=== PATIENT | female | born 1955 | race American Indian/Alaskan Native ===

== ENCOUNTER 2017-10-17 14:48 | Outpatient (CLI) | payer MEDICAID ==
--- NOTE | 2017-10-17 16:38 | XRay Report ---
XRAY LEFT HIP THREE VIEWS: 10/17/17 14:48:00 CLINICAL: Left hip pain. FINDINGS: Severe osteoarthritis of the left hip with complete loss of the joint space. A large superior osteophyte enlarged superior acetabular geodes. Mild to moderate osteoarthritis of the right hip. Old healed bilateral inferior pubic rami fractures. IMPRESSION: 1. Severe left hip osteoarthritis. 2. No acute fracture or dislocation. 3. Old bilateral healed inferior pubic rami fractures.
== END 2017-10-17 14:49 | disposition home or self-care (01) ==
LOC: XRAY 14:48
PROVIDERS: ATTEND Orthopaedic Surgery
DX: M16.12 Unilateral primary osteoarthritis, left hip (principal); M25.752 Osteophyte, left hip; M79.652 Pain in left thigh; I10 Essential (primary) hypertension; J45.909 Unspecified asthma, uncomplicated; F41.9 Anxiety disorder, unspecified; Z85.038 Personal history of other malignant neoplasm of large intestine; Z86.010 Personal history of colon polyps; Z90.49 Acquired absence of other specified parts of digestive tract

== ENCOUNTER 2017-11-10 10:00 | Inpatient (IN) | payer MEDICAID ==
[2017-11-10 11:05] LABS: Basophils % (Auto) 0.8 % (0.0-1.8); Eosinophils # (Auto) 0.1 K/mm3 (0.0-0.4); Eosinophils % (Auto) 2.5 % (0.0-4.3); Hematocrit 36.9 % (30.3-42.9); Hemoglobin 13.2 gm/dl (10.1-14.3); Lymphocytes # (Auto) 1.3 K/mm3 (1.2-5.4); Lymphocytes % (Auto) 27.5 % (13.4-35.0); Mean Corpuscular HGB Conc 36 % (30-34); Mean Corpuscular Hemoglobin 32 pg (28-32); Mean Corpuscular Volume 88 fl (79-97); Monocytes # (Auto) 0.4 K/mm3 (0.0-0.8); Monocytes % (Auto) 7.9 % (0.0-7.3); Platelet Count 249 K/mm3 (140-440); Red Blood Count 4.19 M/mm3 (3.65-5.03); Red Cell Distribution Width 13.5 % (13.2-15.2)
--- NOTE | 2017-11-10 11:06 | Anesthesia Consultation ---
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
[2017-11-10 11:27] LABS: Alanine Aminotransferase 6 units/L (7-56); Albumin 3.9 g/dL (3.9-5); BUN/Creatinine Ratio 19; Blood Urea Nitrogen 13 mg/dL (7-17); Calcium 9.8 mg/dL (8.4-10.2); Hemolysis Index 14
[2017-11-16] MEDS ORDERED: TRANEXAMIC ACID ONE (06:46)
[2017-11-16] MEDS ORDERED: MARCAINE 0.5% 30 ML INFILTRATI ONE (06:46)
[2017-11-16] MEDS ORDERED: TORADOL ONE (06:46)
[2017-11-16] MEDS ORDERED: NACL 0.9% 250ML 250 ML ONE (06:47)
[2017-11-16] MEDS ORDERED: MORPHINE ONE (06:47)
[2017-11-16] MEDS ORDERED: XYLOCAINE MPF 2% ONE (07:13)
[2017-11-16] MEDS ORDERED: DIPRIVAN 10 MG/ML IV ONE ×2 (07:13→09:04)
--- NOTE | 2017-11-16 07:25 | Anesthesia Day of Surgery ---
Anesthesia Day of Surgery - Day of Surgery Patient Examined: Yes Patient H&P Reviewed: Yes Patient is NPO: Yes
[2017-11-16] MEDS ORDERED: ZOFRAN IV PRN (07:30)
--- NOTE | 2017-11-16 07:43 | Anesthesia Day of Surgery ---
Anesthesia Day of Surgery - Day of Surgery Patient Examined: Yes Patient H&P Reviewed: Yes Patient is NPO: Yes
[2017-11-16] MEDS ORDERED: LACTATED RINGERS 1,000 ML ONE (07:58)
[2017-11-16] MEDS ORDERED: VERSED IV NR (08:00)
[2017-11-16] MEDS ORDERED: ceFAZolin 2 GM in NACL 0.9% 100 ML IV ONE (08:08)
[2017-11-16] MEDS: LACTATED RINGERS 1,000 ML IV SCH ×2 (08:14→17:20)
[2017-11-16 08:16] LABS: Partial Thromboplastin Time 27.5 Sec. (24.2-36.6)
[2017-11-16] MEDS ORDERED: ZEMURON IV ONE (08:18)
[2017-11-16] MEDS ORDERED: ANCEF/STERILE WATER 2 GM/20 ML 2 GM/20 ML SYRINGE IV NR (08:30)
[2017-11-16] MEDS ORDERED: DILAUDID ONE (08:47)
[2017-11-16] MEDS ORDERED: ZOFRAN ONE (09:36)
[2017-11-16] MEDS ORDERED: DECADRON ONE (09:36)
[2017-11-16] MEDS ORDERED: TRANEXAMIC ACID IV ONE (09:41)
[2017-11-16] MEDS ORDERED: NACL 0.9% 1000 ML 1,000 ML ONE (10:35)
[2017-11-16] MEDS ORDERED: NACL 0.9% IV ONE ×2 (10:45)
[2017-11-16] MEDS ORDERED: MARCAINE 0.5% INFILTRATI ONE ×2 (10:45)
[2017-11-16] MEDS ORDERED: MORPHINE IM ONE ×2 (10:45)
[2017-11-16] MEDS ORDERED: MILK OF MAGNESIA PO PRN (11:26)
[2017-11-16] MEDS ORDERED: AMBIEN PO PRN (11:26)
[2017-11-16] MEDS ORDERED: DULCOLAX PR PRN (11:26)
--- NOTE | 2017-11-16 11:39 | Procedure Note ---
Date of procedure: 11/16/17 Pre-op diagnosis: severe arthritis left hip Post-op diagnosis: same Procedure: Left total hip replacement Procedure The patient was brought to the OR placed in the OR table supine position following induction and intubation by anesthesia the patient was turned into the right lateral decubitus position care was taken to protect bony areas and a axillary roll was placed in the right axilla. Routine prep and drape was done to the left hip and thigh a timeout procedure was done to identify the patient and the correct operative site. Next a lateral incision was made centered over the greater trochanteric trochanter this is taken approximately as well as distally along the proximal thigh incision was then carried down deep through the skin and subcutaneous tissue next the fascial enriqueta was seen and identified a longitudinal incision was made following this a large Charnley retractor was placed in the wound was brought TO THE VASTUS LATERALIS AND GLUTEUS MEDIUS MUSCLES USING A BOVIE THE INCISION WAS CARRIED ALONG THE ANTERIOR CAPSULE NEXT THE HIP WAS FLEXED AND INTERNALLY ROTATED AND A CAPSULOTOMY WAS PERFORMED. The hip was then dislocated and using a small broach as a template a osteotomy was performed on the femoral neck following this a bone corkscrew was used to retrieve the femoral head which appeared arthritic with bone spurs and loss of articular cartilage following this the retractors were placed around the rim of the acetabulum care was taken to remove soft tissue and labrum the femoral head measured 44 mm in diameter A reaming was started started with the a 42 mm reamer and progressed up which to a 52 mm cup following this the wound was irrigated a 52 mm acetabular to hold shell was applied in the correct version to bone screws were used to maintain reduction next day 0 polyethylene liner was inserted next attention was turned to the proximal femur using a [employer] cutter and the proximal canal was entered this was followed by reaming and broaching to a plus #5 stem followed by placement of a 0 length neck and a 36 mm head the hip was then reduced and taken through range of motion and was found to be stable following this the trial components were removed the wound was again irrigated as well as the medullary canal this was followed by insertion of the final component and a #5 stem and a 36 mm head with the 0 offset again the hip was reduced taken through a range of motion and was found to be stable following this the postop pain could conduction mixture was injected into the soft tissues for postoperative pain management next the deep tissues and fascia was closed with #1 Vicryl sutures followed by closure of the subcutaneous tissues with 0 2-0 Vicryl a zip line suture apparatus was applied to the skin as well as routine postop dressings the patient was extubated and was taken to postanesthesia recovery in stable condition Anesthesia: KELSEY Surgeon: JEFFREY BARRETT Parts Assembler: CHICO WU Estimated blood loss: other (300 mL) Pathology: list (left femoral head) Specimen disposition: to lab Condition: stable Disposition: PACU
[2017-11-16] MEDS ORDERED: SODIUM CHLORIDE FLUSH SYRINGE 10 ML IV NR (12:00)
[2017-11-16] MEDS: DILAUDID IV PRN ×3 (12:05→22:59)
[2017-11-16] MEDS: MORPHINE IV PRN (14:20)
--- NOTE | 2017-11-16 14:35 | Post Anesthesia Evaluation ---
- Post Anesthesia Evaluation Patient Participated: Yes Airway Patent: Yes Stable Respiratory Function: Yes Nausea/Vomiting: No Temp > 96.8F: Yes Pain Manageable: Yes Adequeate Hydration: Yes Anesthesia Complications: No
[2017-11-16] MEDS: ANCEF/NS 1 GM/50 ML 1 GM/50 ML BAG IV SCH ×2 (17:20→23:43)
[2017-11-17] MEDS: DILAUDID IV PRN ×3 (03:48→10:33)
[2017-11-17] MEDS: LACTATED RINGERS 1,000 ML IV SCH ×2 (05:17→18:03)
--- NOTE | 2017-11-17 06:00 | Consultation ---
History of Present Illness - Reason for Consult Consult date: 11/16/17 [facility] H[facility] and Asthma Requesting physician: JEFFREY BARRETT - History of Present Illness [place]: S/p Elective L Hip replacement for severe degenerative arthritis of Hip joint.Post op doing well.Medical management for HTN HLD and Asthma Past History Past Medical History: hypertension, hyperlipidemia, other (Asthma) Past Surgical History: total hip replacement (Left) Social history: lives with family, full code Family history: hypertension Medications and Allergies Allergies Allergy/AdvReac Type Severity Reaction Status Date / Time iodine Allergy Severe Rash Verified 04/18/14 06:57 ibuprofen [From Motrin] AdvReac Severe Nausea, Verified 04/18/14 06:58 vomiting Home Medications Medication Instructions Recorded Confirmed Last Taken Type NIFEdipine XL [Procardia Xl] 90 mg PO QDAY 03/03/13 11/16/17 11/16/17 History 0430 Pnv95/Ferrous Fumarate/FA 1 each PO QDAY 03/03/13 11/16/17 11/15/17 09:00 History [ Formula Tablet] ALBUTEROL NEB's [Proventil 0.083% 2.5 mg IH PRN PRN 11/07/17 11/16/17 6 Months Ago History NEBS] ~05/19/17 Aspirin [Aspirin EC] 325 mg PO DAILY 11/07/17 11/16/17 11/09/17 09:00 History Atorvastatin Calcium [Lipitor] 20 mg PO DAILY 11/07/17 11/16/17 11/14/17 21:00 History Losartan Potassium [Cozaar] 50 mg PO DAILY 11/07/17 11/16/17 11/16/17 History 0430 Meloxicam [Mobic] 7.5 mg PO BID 11/16/17 11/16/17 11/16/17 History 0430 Active Meds: Active Medications Bisacodyl (Dulcolax) 10 mg [place] QDAY PRN PRN Reason: Constip unreliev by MOM/or NPO Enoxaparin Sodium (Lovenox) 40 mg SUB-Q QDAY MALCOM Hydromorphone HCl (Dilaudid) 1 mg IV Q3H PRN PRN Reason: Pain , Severe (7-10) Last Admin: 11/17/17 03:48 Dose: 1 mg Lactated Ringer's (Lactated Ringers) 1,000 mls @ 100 mls/hr IV DIRECT MALCOM Last Admin: 11/17/17 05:17 Dose: 100 mls/hr Magnesium Hydroxide (Milk Of Magnesia) 30 ml PO Q4H PRN PRN Reason: Constipation Morphine Sulfate (Morphine) 2 mg IV Q4H PRN PRN Reason: Pain, Moderate (4-6) Last Admin: 11/16/17 14:20 Dose: 2 mg Zolpidem Tartrate (Ambien) 5 mg PO QHS PRN PRN Reason: Sleep Review of Systems All systems: negative Exam - Constitutional Vitals: Temp Pulse Resp BP Pulse Ox 99.2 F 75 20 99/59 99 11/17/17 03:59 11/17/17 03:59 11/17/17 03:59 11/17/17 03:59 11/17/17 03:59 General appearance: Present: no acute distress, well-nourished - EENT Eyes: Present: PERRL ENT: hearing intact, clear oral mucosa - Neck Neck: Present: supple, normal ROM - Respiratory Respiratory effort: normal Respiratory: bilateral: CTA - Cardiovascular Heart rate: 76 Rhythm: regular Heart Sounds: Present: S1 & S2. Absent: rub, click - Extremities Extremities: no ischemia, pulses intact, pulses symmetrical, No edema Peripheral Pulses: within normal limits - Abdominal General gastrointestinal: Present: soft, non-tender, non-distended, normal bowel sounds Female genitourinary: Present: normal - Rectal Rectal Exam: deferred - Integumentary Integumentary: Present: clear, warm, dry - Musculoskeletal Musculoskeletal: gait normal, strength equal bilaterally - Psychiatric Psychiatric: appropriate mood/affect, intact judgment & insight - Neurologic Neurologic: CNII-XII intact, moves all extremities - Allied Health Allied health notes reviewed: case management Results - Labs CBC & Chem 7: 11/10/17 10:30 11/10/17 10:30 Assessment and Plan - Patient Problems (1) HTN (hypertension), benign Current Visit: Yes Status: Chronic Plan to address problem: Cont Losartan and Nifedipine (2) HLD (hyperlipidemia) Current Visit: Yes Status: Chronic Qualifiers: Hyperlipidemia type: mixed hyperlipidemia Qualified Code(s): E78.2 - Mixed hyperlipidemia Plan to address problem: Cont statins (3) Asthma Current Visit: Yes Status: Inactive Qualifiers: Asthma persistence: unspecified Plan to address problem: MDI's prn. Not wheezing (4) S/P hip replacement Current Visit: Yes Status: Acute Qualifiers: Laterality: left Qualified Code(s): Z96.642 - Presence of left artificial hip joint Plan to address problem: Post op doing well (5) DVT prophylaxis Current Visit: Yes Status: Acute Plan to address problem: On Lovenox
[2017-11-17 06:12] LABS: Hematocrit 31.4 % (30.3-42.9); Hemoglobin 10.4 gm/dl (10.1-14.3)
[2017-11-17 06:34] LABS: Calcium 8.7 mg/dL (8.4-10.2)
--- NOTE | 2017-11-17 07:39 | XRay Report ---
LEFT HIP, ONE VIEW History: Postoperative evaluation. Findings: Left hip replacement has been performed since 10/17/17. The hardware appears well applied. No fracture or malalignment is appreciated. Impression: Stable appearance of the left hip arthroplasty.
[2017-11-17] MEDS: LOVENOX SUB-Q SCH (10:36)
[2017-11-17] MEDS: PERCOCET 5/325 PO PRN ×3 (13:29→23:27)
--- NOTE | 2017-11-17 15:03 | Progress Note ---
Assessment and Plan s/p left THR doing well continue PT and observation Subjective Date of service: 11/17/17 Interval history: no c/o's noted except for incisional soreness Objective Vital signs: Vital Signs - 12hr 11/17/17 11/17/17 11/17/17 03:59 07:15 08:57 Temperature 99.2 F 99.0 F Pulse Rate 75 72 Respiratory 20 20 Rate Blood Pressure 99/59 Blood Pressure 102/50 [Left] O2 Sat by Pulse 99 98 98 Oximetry 11/17/17 11:25 Temperature 99.0 F Pulse Rate 73 Respiratory 20 Rate Blood Pressure Blood Pressure 102/56 [Left] O2 Sat by Pulse 100 Oximetry - Labs CBC & BMP: 11/17/17 06:00 11/17/17 06:00 Labs: Abnormal lab results 11/17/17 Range/Units 06:00 BUN 18 H (7-17) mg/dL Glucose 120 H (65-100) mg/dL
[2017-11-17] MEDS ORDERED: PROVENTIL IH PRN (17:38)
--- NOTE | 2017-11-17 17:40 | Progress Note ---
Assessment and Plan Assessment and plan: 5-year-old female past medical history of hypertension, hyperlipidemia asthma osteoarthritis presented for Elective L Hip replacement for severe degenerative arthritis of Hip joint is affecting patient's quality of life.Post op doing well.Medical management for HTN HLD and Asthma (1) HTN (hypertension), benign Current Visit: Yes Status: Chronic Plan to address problem: Cont Losartan and Nifedipine (2) HLD (hyperlipidemia) Current Visit: Yes Status: Chronic Qualifiers: Hyperlipidemia type: mixed hyperlipidemia Qualified Code(s): E78.2 - Mixed hyperlipidemia Plan to address problem: Cont statins (3) Asthma Current Visit: Yes Status: Inactive Qualifiers: Asthma persistence: unspecified Plan to address problem: MDI's prn. No acute distress noted (4) S/P hip replacement Current Visit: Yes Status: Acute Qualifiers: Laterality: left Qualified Code(s): Z96.642 - Presence of left artificial hip joint Plan to address problem: Post op doing well Continue physical therapy. Otherwise other management per orthopedic surgeon (5) DVT prophylaxis Current Visit: Yes Status: Acute Plan to address problem: On Lovenox History Interval history: Patient seen and examined this morning doing well in no acute distress resting comfortably. She still reports some pain in the surgical site. She has seen physical therapy by just getting her up to see by the bedside. Hospitalist Physical - Physical exam Narrative exam: VITAL SIGNS: Reviewed. GENERAL: The patient appeared well nourished and normally developed, morbidly obese. Vital signs as documented. HEAD: No signs of head trauma. EYES: Pupils are equal. Extraocular motions intact. EARS: Hearing grossly intact. MOUTH: Oropharynx is normal. NECK: No adenopathy, no JVD. CHEST: Chest with clear breath sounds bilaterally. No wheezes, rales, or rhonchi. CARDIAC: Regular rate and rhythm. S1 and S2, without murmurs, gallops, or rubs. VASCULAR: No Edema. Peripheral pulses normal and equal in all extremities. ABDOMEN: Soft, without detectable tenderness. No sign of distention. No rebound or guarding, and no masses palpated. Bowel Sounds normal. MUSCULOSKELETAL: Good range of motion of all major joints except hip joint site of surgical repair.. Extremities without clubbing, cyanosis or edema. NEUROLOGIC EXAM: Alert and oriented x 3. No focal sensory or strength deficits. Speech normal. Follows commands. PSYCHIATRIC: Mood normal. SKIN: No rash or lesions. - Constitutional Vitals: Temp Pulse Resp BP Pulse Ox 98.3 F 77 20 105/60 100 11/17/17 16:50 11/17/17 16:50 11/17/17 16:50 11/17/17 16:50 11/17/17 16:50 General appearance: Present: no acute distress, well-nourished Results - Labs CBC & Chem 7: 11/17/17 06:00 11/17/17 06:00 Labs: Laboratory Last Values WBC 4.7 K/mm3 (4.5-11.0) 11/10/17 10:30 RBC 4.19 M/mm3 (3.65-5.03) 11/10/17 10:30 Hgb 10.4 gm/dl (10.1-14.3) 11/17/17 06:00 Hct 31.4 % (30.3-42.9) 11/17/17 06:00 MCV 88 fl (79-97) 11/10/17 10:30 MCH 32 pg (28-32) 11/10/17 10:30 MCHC 36 % (30-34) H 11/10/17 10:30 RDW 13.5 % (13.2-15.2) 11/10/17 10:30 Plt Count 249 K/mm3 (140-440) 11/10/17 10:30 Lymph % (Auto) 27.5 % (13.4-35.0) 11/10/17 10:30 [place] % (Auto) 7.9 % (0.0-7.3) H 11/10/17 10:30 Eos % (Auto) 2.5 % (0.0-4.3) 11/10/17 10:30 Baso % (Auto) 0.8 % (0.0-1.8) 11/10/17 10:30 Lymph # 1.3 K/mm3 (1.2-5.4) 11/10/17 10:30 [place] # 0.4 K/mm3 (0.0-0.8) 11/10/17 10:30 Eos # 0.1 K/mm3 (0.0-0.4) 11/10/17 10:30 Baso # 0.0 K/mm3 (0.0-0.1) 11/10/17 10:30 Seg Neutrophils % 61.3 % (40.0-70.0) 11/10/17 10:30 Seg Neutrophils # 2.9 K/mm3 (1.8-7.7) 11/10/17 10:30 PT 13.7 Sec. (12.2-14.9) 11/16/17 07:45 INR 1.00 (0.87-1.13) 11/16/17 07:45 APTT 27.5 Sec. (24.2-36.6) 11/16/17 07:45 Sodium 142 mmol/L (137-145) 11/17/17 06:00 Potassium 4.5 mmol/L (3.6-5.0) 11/17/17 06:00 Chloride 103.8 mmol/L (98-107) 11/17/17 06:00 Carbon Dioxide 27 mmol/L (22-30) 11/17/17 06:00 Anion Gap 16 mmol/L 11/17/17 06:00 BUN 18 mg/dL (7-17) H 11/17/17 06:00 Creatinine 1.2 mg/dL (0.7-1.2) 11/17/17 06:00 Estimated GFR 55 ml/min 11/17/17 06:00 BUN/Creatinine Ratio 15 % 11/17/17 06:00 Glucose 120 mg/dL (65-100) H 11/17/17 06:00 Calcium 8.7 mg/dL (8.4-10.2) 11/17/17 06:00 Total Bilirubin 0.80 mg/dL (0.1-1.2) 11/10/17 10:30 AST 14 units/L (5-40) 11/10/17 10:30 ALT 6 units/L (7-56) L 11/10/17 10:30 Alkaline Phosphatase 67 units/L (35-129) 11/10/17 10:30 Total Protein 7.7 g/dL (6.3-8.2) 11/10/17 10:30 Albumin 3.9 g/dL (3.9-5) 11/10/17 10:30 Albumin/Globulin Ratio 1.0 % 11/10/17 10:30 Blood Type O POSITIVE 11/16/17 07:45 Antibody Screen Negative 11/16/17 07:45
[2017-11-18] MEDS: LACTATED RINGERS 1,000 ML IV SCH (05:35)
[2017-11-18] MEDS: PERCOCET 5/325 PO PRN ×3 (05:36→22:51)
[2017-11-18] MEDS: LOVENOX SUB-Q SCH (10:06)
[2017-11-18] MEDS: ECOTRIN PO SCH (10:06)
[2017-11-18] MEDS: COZAAR PO SCH (10:12)
[2017-11-18] MEDS: PROCARDIA XL PO SCH (10:14)
--- NOTE | 2017-11-18 23:43 | Progress Note ---
Assessment and Plan 1) HTN (hypertension), benign Current Visit: Yes Status: Chronic Plan to address problem: Cont Losartan and Nifedipine (2) HLD (hyperlipidemia) Current Visit: Yes Status: Chronic Qualifiers: Hyperlipidemia type: mixed hyperlipidemia Qualified Code(s): E78.2 - Mixed hyperlipidemia Plan to address problem: Cont statins (3) Asthma Current Visit: Yes Status: Inactive Qualifiers: Asthma persistence: unspecified Plan to address problem: MDI's prn. No acute distress noted (4) S/P hip replacement Current Visit: Yes Status: Acute Qualifiers: Laterality: left Qualified Code(s): Z96.642 - Presence of left artificial hip joint Plan to address problem: Post op doing well Continue physical therapy. Otherwise other management per orthopedic surgeon (5) DVT prophylaxis Current Visit: Yes Status: Acute Plan to address problem: On Lovenox Subjective Date of service: 11/18/17 Principal diagnosis: left hip replacement Interval history: Patient seen and examined. Has slight pain at incision site Objective - Exam Narrative Exam: Constitutional: Well-nourished well-developed. In no distress Head: Normocephalic atraumatic Eyes: Pupils are equal round and reactive to light Nose: No enlarged turbinates, no septal deviation. Mouth: Moist mucous membranes. Neck: Supple no thyromegaly. No bruit. No JVD Heart: Regular rate and rhythm, S1-S2 abnormal. No rubs murmurs or gallop Lungs: Clear to auscultation bilaterally no rales or rhonchi Abdomen: Soft, nontender. Bowel sound are present. Extremities: Left hip wound dressing is dry. No edema no cyanosis and no clubbing. Neuro: Alert oriented Oriented x3. No focal sensory or motor deficit. Skin: No rashes no hyperemic spots Psychiatry: Euthymic. Calm. - Constitutional Vitals: Vital Signs - 12hr 11/18/17 11/18/17 11/18/17 12:05 16:00 20:08 Temperature 98.8 F 98.8 F 101.7 F H Pulse Rate 72 70 86 Respiratory 20 20 20 Rate Blood Pressure 99/47 Blood Pressure 110/60 110/58 [Left] O2 Sat by Pulse 96 97 99 Oximetry - Labs CBC & Chem 7: 11/17/17 06:00 11/17/17 06:00
[2017-11-19] MEDS: MORPHINE IV PRN ×2 (05:11→21:22)
[2017-11-19] MEDS: DILAUDID IV PRN ×2 (09:01→15:21)
[2017-11-19] MEDS: LOVENOX SUB-Q SCH (09:01)
[2017-11-19] MEDS: ECOTRIN PO SCH (09:01)
[2017-11-19] MEDS: PROCARDIA XL PO SCH (09:02)
[2017-11-19] MEDS: COZAAR PO SCH (09:02)
[2017-11-19] MEDS: PERCOCET 5/325 PO PRN ×2 (11:40→17:53)
[2017-11-20] MEDS: LOVENOX SUB-Q SCH ×2 (08:51→10:00)
[2017-11-20] MEDS: ECOTRIN PO SCH ×2 (08:51→10:00)
[2017-11-20] MEDS: PERCOCET 5/325 PO PRN ×3 (11:44→21:37)
[2017-11-20] MEDS: DILAUDID IV PRN (13:41)
[2017-11-20] MEDS: COZAAR PO SCH (13:45)
[2017-11-20] MEDS: PROCARDIA XL PO SCH (13:45)
--- NOTE | 2017-11-20 21:54 | Progress Note ---
Assessment and Plan - HTN (hypertension), benign Cont Losartan and Nifedipine - HLD (hyperlipidemia) Cont statins - Asthma MDI's prn. No acute distress noted - S/P hip replacement Post op doing well Continue physical therapy. Otherwise other management per orthopedic surgeon - DVT prophylaxis Current Visit: Yes Status: Acute Plan to address problem: On Lovenox Subjective Date of service: 11/20/17 Principal diagnosis: left hip replacement Interval history: Patient seen and examined. Has slight pain at incision site Objective - Exam Narrative Exam: Constitutional: Well-nourished well-developed.In no distress Head: Normocephalic atraumatic Eyes: Pupils are equal round and reactive to light Nose: No enlarged turbinates, no septal deviation. Mouth: Moist mucous membranes. Neck: Supple no thyromegaly. No bruit. No JVD Heart: Regular rate and rhythm, S1-S2 abnormal. No rubs murmurs or gallop Lungs: Clear to auscultation bilaterally no rales or rhonchi Abdomen: Soft, nontender. Bowel sound are present. Extremities: Left hip wound dressing is dry. No edema no cyanosis and no clubbing. Neuro: Alert oriented Oriented x3. No focal sensory or motor deficit. Skin: No rashes no hyperemic spots Psychiatry: Euthymic. Calm. - Constitutional Vitals: Vital Signs - 12hr 11/20/17 11/20/17 11/20/17 13:00 13:24 13:45 Temperature 98.1 F Pulse Rate 88 88 Respiratory 18 Rate Blood Pressure 144/86 146/86 Blood Pressure [Left] Blood Pressure [Right] O2 Sat by Pulse Oximetry 11/20/17 11/20/17 16:00 21:27 Temperature 98.8 F 99.5 F Pulse Rate 85 83 Respiratory 18 18 Rate Blood Pressure 125/61 Blood Pressure 125/61 [Left] Blood Pressure 114/55 [Right] O2 Sat by Pulse 94 Oximetry - Labs CBC & Chem 7: 11/17/17 06:00 11/17/17 06:00
--- NOTE | 2017-11-20 21:55 | Progress Note ---
Assessment and Plan - S/P hip replacement Post op doing well Continue physical therapy. Otherwise other management per orthopedic surgeon - HTN (hypertension), benign Cont Losartan and Nifedipine - HLD (hyperlipidemia) Cont statins - Asthma MDI's prn. No acute distress noted - DVT prophylaxis Current Visit: Yes Status: Acute Plan to address problem: On Lovenox Subjective Date of service: 11/20/17 Principal diagnosis: left hip replacement Interval history: Patient seen and examined. Has slight pain at incision site Objective - Exam Narrative Exam: Constitutional: Well-nourished well-developed. In no distress Head: Normocephalic atraumatic Eyes: Pupils are equal round and reactive to light Nose: No enlarged turbinates, no septal deviation. Mouth: Moist mucous membranes. Neck: Supple no thyromegaly. No bruit. No JVD Heart: Regular rate and rhythm, S1-S2 abnormal. No rubs murmurs or gallop Lungs: Clear to auscultation bilaterally no rales or rhonchi Abdomen: Soft, nontender. Bowel sound are present. Extremities: Left hip wound dressing is dry. No edema no cyanosis and no clubbing. Neuro: Alert oriented Oriented x3. No focal sensory or motor deficit. Skin: No rashes no hyperemic spots Psychiatry: Euthymic. Calm. - Constitutional Vitals: Vital Signs - 12hr 11/20/17 11/20/17 11/20/17 13:00 13:24 13:45 Temperature 98.1 F Pulse Rate 88 88 Respiratory 18 Rate Blood Pressure 144/86 146/86 Blood Pressure [Left] Blood Pressure [Right] O2 Sat by Pulse Oximetry 11/20/17 11/20/17 16:00 21:27 Temperature 98.8 F 99.5 F Pulse Rate 85 83 Respiratory 18 18 Rate Blood Pressure 125/61 Blood Pressure 125/61 [Left] Blood Pressure 114/55 [Right] O2 Sat by Pulse 94 Oximetry - Labs CBC & Chem 7: 11/17/17 06:00 11/17/17 06:00
[2017-11-21] MEDS: PERCOCET 5/325 PO PRN ×2 (05:01→15:13)
[2017-11-21] MEDS: PROCARDIA XL PO SCH (10:07)
[2017-11-21] MEDS: ECOTRIN PO SCH (10:07)
[2017-11-21] MEDS: LOVENOX SUB-Q SCH (10:07)
[2017-11-21] MEDS: COZAAR PO SCH (10:11)
[2017-11-21] MEDS ORDERED: ROXICODONE PO PRN (16:08)
[2017-11-21 16:52] VITALS: BP 104/46
--- NOTE | 2017-11-21 23:49 | Progress Note ---
Assessment and Plan - HTN (hypertension), benign Cont Losartan and Nifedipine - HLD (hyperlipidemia) Cont statins - Asthma MDI's prn. No acute distress noted - S/P hip replacement Post op doing well Continue physical therapy. Otherwise other management per orthopedic surgeon - DVT prophylaxis Current Visit: Yes Status: Acute Plan to address problem: On Lovenox Subjective Date of service: 11/20/17 Principal diagnosis: left hip replacement Interval history: Patient seen and examined. Has slight pain at incision site Objective - Exam Narrative Exam: Constitutional: Well-nourished well-developed.In no distress Head: Normocephalic atraumatic Eyes: Pupils are equal round and reactive to light Nose: No enlarged turbinates, no septal deviation. Mouth: Moist mucous membranes. Neck: Supple no thyromegaly. No bruit. No JVD Heart: Regular rate and rhythm, S1-S2 abnormal. No rubs murmurs or gallop Lungs: Clear to auscultation bilaterally no rales or rhonchi Abdomen: Soft, nontender. Bowel sound are present. Extremities: Left hip wound dressing is dry. No edema no cyanosis and no clubbing. Neuro: Alert oriented Oriented x3. No focal sensory or motor deficit. Skin: No rashes no hyperemic spots Psychiatry: Euthymic. Calm. Subjective Date of service: 11/21/17 Principal diagnosis: left hip replacement Objective - Constitutional Vitals: Vital Signs - 12hr 11/21/17 16:02 Temperature 99.0 F Pulse Rate 81 Respiratory 18 Rate Blood Pressure 104/46 O2 Sat by Pulse 96 Oximetry - Labs CBC & Chem 7: 11/17/17 06:00 11/17/17 06:00
== END 2017-11-21 18:00 | disposition home health service (06) | DRG 470 ==
LOC: 3A 11-16 06:24 → 3B-SURG 11-16 13:44
PROVIDERS: ADMIT Orthopaedic Surgery; ATTEND Orthopaedic Surgery
PROC: 0SRB0JZ Replacement of Left Hip Joint with Synthetic Substitute, Open Approach (ICD-10-PCS; principal; 2017-11-16)
DX: M16.12 Unilateral primary osteoarthritis, left hip (principal); I10 Essential (primary) hypertension; E78.2 Mixed hyperlipidemia; J45.909 Unspecified asthma, uncomplicated; E66.01 Morbid (severe) obesity due to excess calories; Z82.49 Family history of ischemic heart disease and other diseases of the circulatory system; Z88.6 Allergy status to analgesic agent; Z91.041 Radiographic dye allergy status; Z79.899 Other long term (current) drug therapy; Z79.51 Long term (current) use of inhaled steroids; Z79.82 Long term (current) use of aspirin; Z86.73 Personal history of transient ischemic attack (TIA), and cerebral infarction without residual deficits; Z68.43 Body mass index [BMI] 50.0-59.9, adult
CPT/HCPCS: 36415; 80048; 80053; 85014; 85018; 85025; 85610; 85730; 86850; 86900; 86901; 88304; 88311; 94760; A9270-GY; C1776; J0690; J1100; J1170; J1650; J1885; J2250; J2270; J2405; J2704; J7030; J7050; J7120

== ENCOUNTER 2017-12-12 22:28 | Emergency (ER) | payer MEDICAID ==
[2017-12-12] MEDS ORDERED: DILAUDID IM ONE (23:08)
[2017-12-12] MEDS ORDERED: ZOFRAN IM ONE (23:08)
--- NOTE | 2017-12-12 23:10 | Emergency Department Report ---
HPI - General Chief Complaint: Extremity Injury, Lower Time Seen by Provider: 12/12/17 22:54 - HPI HPI: Room 4 The patient is a 62-year-old female presenting with a chief complaint of left hip pain. The patient status post total left hip replacement by Dr. Gee 06/2017. The patient states for the past 3 days she's had pain/spasms of the left hip. Patient denies any recent trauma or fever. Patient states the pain is becoming going. The patient states she has been taking oxycodone but it has not helped. Today Dr. Gee called in a muscle relaxant (likely xanaflex) this has also provided no relief. The patient gives her pain a score of 10/10. Location: Left hip Duration: 3 days Quality: Spasms Severity: 10/10 Modifying factors: [see above] Context: [see above] Mode of transportation: [not driving] ED Past Medical Hx - Past Medical History Previous Medical History?: Yes Hx Hypertension: Yes (2004) Hx Renal Disease: (hx kidney stones) Hx of Cancer: Yes (colon Ca remission) Hx Arthritis: Yes Hx Headaches / Migraines: Yes (MIGRAINES- NOT RECENT) Hx Kidney Stones: Yes Hx Asthma: Yes (INHALERS PRN) Additional medical history: Degenerative Joint Disease - Surgical History Past Surgical History?: Yes Hx Appendectomy: Yes (2009) Additional Surgical History: tonsilectomy, tubiligation, colon cancer, rotator cuff on right, - Family History Family history: no significant - Social History Smoking Status: Never Smoker Substance Use Type: None (denies illicit drug use) - Medications Home Medications: Home Medications Medication Instructions Recorded Confirmed Last Taken Type NIFEdipine XL [Procardia Xl] 90 mg PO QDAY 03/03/13 11/16/17 11/16/17 History 0430 Pnv95/Ferrous Fumarate/FA 1 each PO QDAY 03/03/13 11/16/17 11/15/17 09:00 History [ Formula Tablet] ALBUTEROL NEB's [Proventil 0.083% 2.5 mg IH PRN PRN 11/07/17 11/16/17 6 Months Ago History NEBS] ~05/19/17 Aspirin [Aspirin EC] 325 mg PO DAILY 11/07/17 11/16/17 11/09/17 09:00 History Atorvastatin Calcium [Lipitor] 20 mg PO DAILY 11/07/17 11/16/17 11/14/17 21:00 History Losartan Potassium [Cozaar] 50 mg PO DAILY 11/07/17 11/16/17 11/16/17 History 0430 Meloxicam [Mobic] 7.5 mg PO BID 11/16/17 11/16/17 11/16/17 History 0430 Oxycodone HCl [OxyCONTIN ER TAB] 15 mg PO Q12HR PRN #40 tab 11/21/17 Unknown Rx Ketorolac [Toradol] 10 mg PO Q6H PRN #16 tablet 12/13/17 Unknown Rx ED Review of Systems ROS: Stated complaint: HIP PAIN Other details as noted in HPI Constitutional: denies: fever Eyes: denies: eye pain ENT: denies: throat pain Respiratory: no symptoms reported Cardiovascular: denies: chest pain Endocrine: no symptoms reported Gastrointestinal: denies: abdominal pain Genitourinary: denies: dysuria Musculoskeletal: arthralgia, myalgia Neurological: denies: headache Physical Exam - Physical Exam Vital Signs: Vital Signs 12/12/17 22:58 Temperature 98.3 F Pulse Rate 84 Respiratory 18 Rate Blood Pressure 170/71 O2 Sat by Pulse 97 Oximetry Physical Exam: GENERAL: The patient is well-developed well-nourished female lying on stretcher. Be in moderate discomfort. [] HEENT: Normocephalic. Atraumatic. Extraocular motions are intact. Patient has moist mucous membranes. NECK: Supple. Trachea midline CHEST/LUNGS: Clear to auscultation. There is no respiratory distress noted. HEART/CARDIOVASCULAR: Regular. There is no tachycardia. There is no gallop rub or murmur. ABDOMEN: Abdomen is soft, nontender. Patient has normal bowel sounds. There is no abdominal distention. SKIN: There is no rash. There is no edema. There is no diaphoresis. Left hip surgical site is clean dry and intact. Well-healed NEURO: The patient is awake, alert, and oriented. The patient is cooperative. The patient has no focal neurologic deficits. The patient has normal speech MUSCULOSKELETAL: There is pain to the posterior superior lateral aspect of the left hip. There is no evidence of acute injury. ED Course Vital Signs 12/12/17 22:58 Temperature 98.3 F Pulse Rate 84 Respiratory 18 Rate Blood Pressure 170/71 O2 Sat by Pulse 97 Oximetry - Consultations Consultation #1: 12/12/17 23:[address] Gee-states give pain medications to make patient comfortable and okay to check a CBC. Have patient follow-up in office ED Medical Decision Making - Lab Data Result diagrams: 12/12/17 23:43 - Differential Diagnosis hip pain Critical care attestation.: If time is entered above; I have spent that time in minutes in the direct care of this critically ill patient, excluding procedure time. ED Disposition Clinical Impression: Left hip pain Disposition: DC-01 TO HOME OR SELFCARE Is pt being admited?: No Does the pt Need Aspirin: No Condition: Stable Additional Instructions: Return to the emergency department immediately should you develop worsening symptoms, fever, inability to tolerate food or liquid or any other concerns. Prescriptions: Ketorolac [Toradol] 10 mg PO Q6H PRN #16 tablet PRN Reason: Pain Referrals: JEFFREY GEE MD [Staff Physician] - DIANA Time of Disposition: 00:22
[2017-12-12] MEDS ORDERED: TORADOL IM ONE (23:11)
[2017-12-12 23:52] LABS: Basophils % (Auto) 0.6 % (0.0-1.8); Eosinophils # (Auto) 0.2 K/mm3 (0.0-0.4); Eosinophils % (Auto) 3.7 % (0.0-4.3); Hematocrit 28.9 % (30.3-42.9); Hemoglobin 9.8 gm/dl (10.1-14.3); Lymphocytes # (Auto) 1.2 K/mm3 (1.2-5.4); Lymphocytes % (Auto) 21.5 % (13.4-35.0); Mean Corpuscular HGB Conc 34 % (30-34); Mean Corpuscular Hemoglobin 30 pg (28-32); Mean Corpuscular Volume 88 fl (79-97); Monocytes # (Auto) 0.4 K/mm3 (0.0-0.8); Platelet Count 216 K/mm3 (140-440); Red Blood Count 3.28 M/mm3 (3.65-5.03); Red Cell Distribution Width 14.3 % (13.2-15.2)
[2017-12-13] MEDS ORDERED: DILAUDID IM ONE (00:20)
[2017-12-13 01:42] VITALS: BP 132/66
== END 2017-12-13 01:00 | disposition home or self-care (01) ==
LOC: ED 22:28
DX: M25.552 Pain in left hip (principal); I10 Essential (primary) hypertension; G43.909 Migraine, unspecified, not intractable, without status migrainosus; J45.909 Unspecified asthma, uncomplicated; M19.90 Unspecified osteoarthritis, unspecified site; Z85.038 Personal history of other malignant neoplasm of large intestine; Z90.89 Acquired absence of other organs; Z90.49 Acquired absence of other specified parts of digestive tract; Z98.51 Tubal ligation status; Z88.6 Allergy status to analgesic agent; Z91.041 Radiographic dye allergy status; Z79.899 Other long term (current) drug therapy; Z87.39 Personal history of other diseases of the musculoskeletal system and connective tissue
CPT/HCPCS: 36415; 85025; 96372; 99283; J1170; J1885; J2405

== ENCOUNTER 2018-08-14 14:57 | Inpatient (IN) | payer MEDICAID ==
--- NOTE | 2018-08-14 16:26 | Emergency Department Report ---
ED Syncope HPI - General Chief Complaint: Dizziness Stated Complaint: SYNCOPE Time Seen by Provider: 08/14/18 16:14 Source: patient - History of Present Illness Initial Comments: 62-year-old female presents to the ED following a syncopal episode at work. 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 Patient denies feeling dizzy or lightheaded. Denies chest pain, palpitations, shortness of breath, headache, abdominal pain. Patient reports episode of emesis after regaining consciousness. Patient states she feels much better at this time. Reports syncopal episode in the past and was told she had a light stroke. Patient reports history of hypertension only. PCP: Partha [employer]: Katja Timing/Prior Episodes: remote history Precipitating Factors: Positive: diaphoresis Context: standing Loss of Consciousness: brief (seconds) Current Symptoms: back to normal, nausea - Related Data Allergies/Adverse Reactions: Allergies iodine Allergy (Severe, Verified 04/18/14 06:57) Rash ibuprofen [From Motrin] Adverse Reaction (Severe, Verified 04/18/14 06:58) Nausea, vomiting Home Medications: Ambulatory Orders NIFEdipine XL [Procardia Xl] 90 mg PO QDAY 03/03/13 ALBUTEROL NEB's [Proventil 0.083% NEBS] 2.5 mg IH PRN PRN 11/07/17 Aspirin [Aspirin EC] 325 mg PO DAILY 11/07/17 Atorvastatin Calcium [Lipitor] 20 mg PO DAILY 11/07/17 Losartan Potassium [Cozaar] 50 mg PO DAILY 11/07/17 ED Review of Systems ROS: Stated complaint: SYNCOPE Other details as noted in HPI Comment: All other systems reviewed and negative Constitutional: denies: chills, fever Respiratory: denies: shortness of breath Cardiovascular: denies: chest pain, palpitations Gastrointestinal: nausea, vomiting. denies: abdominal pain, diarrhea Neurological: denies: headache, weakness, paresthesias ED Past Medical Hx - Past Medical History Hx Hypertension: Yes (2004) Hx Heart Attack/AMI: No Hx Congestive Heart Failure: No Hx Renal Disease: (hx kidney stones) Hx Sickle Cell Disease: No Hx Arthritis: Yes Hx Headaches / Migraines: Yes (MIGRAINES- NOT RECENT) Hx Kidney Stones: Yes Hx Asthma: Yes (INHALERS PRN) Hx HIV: No Additional medical history: Degenerative Joint Disease - Surgical History Hx Appendectomy: Yes (2009) Additional Surgical History: tonsilectomy, tubiligation, colon cancer, rotator cuff on right, - Social History Smoking Status: Never Smoker Substance Use Type: None - Medications Home Medications: Home Medications Medication Instructions Recorded Confirmed Last Taken Type NIFEdipine XL [Procardia Xl] 90 mg PO QDAY 03/03/13 08/14/18 11/16/17 History 0430 ALBUTEROL NEB's [Proventil 0.083% 2.5 mg IH PRN PRN 11/07/17 08/14/18 6 Months Ago History NEBS] ~05/19/17 Aspirin [Aspirin EC] 325 mg PO DAILY 11/07/17 08/14/18 11/09/17 09:00 History Atorvastatin Calcium [Lipitor] 20 mg PO DAILY 11/07/17 08/14/18 11/14/17 21:00 History Losartan Potassium [Cozaar] 50 mg PO DAILY 11/07/17 08/14/18 11/16/17 History 0430 ED Physical Exam - General Limitations: No Limitations General appearance: alert, in no apparent distress, obese - Head Head exam: Present: atraumatic, normocephalic - Eye Eye exam: Present: normal appearance, PERRL, EOMI - ENT ENT exam: Present: mucous membranes moist - Neck Neck exam: Present: normal inspection - Respiratory Respiratory exam: Present: normal lung sounds bilaterally. Absent: respiratory distress - Cardiovascular Cardiovascular Exam: Present: tachycardia, irregular rhythm - GI/Abdominal GI/Abdominal exam: Present: soft. Absent: distended, tenderness - Extremities Exam Extremities exam: Present: normal inspection. Absent: pedal edema, calf tenderness - Neurological Exam Neurological exam: Present: alert, oriented X3, CN II-XII intact. Absent: motor sensory deficit - Psychiatric Psychiatric exam: Present: normal affect, normal mood - Skin Skin exam: Present: warm, dry, intact, normal color. Absent: rash ED Course Vital Signs 08/14/18 08/14/18 08/14/18 15:24 15:28 15:30 Temperature 98.3 F Pulse Rate 78 Respiratory 16 Rate Blood Pressure 127/71 Blood Pressure 131/64 [Left] O2 Sat by Pulse 98 97 96 Oximetry 08/14/18 08/14/18 08/14/18 15:51 16:00 16:31 Temperature Pulse Rate 82 88 99 H Respiratory 20 17 15 Rate Blood Pressure 114/58 115/60 115/60 Blood Pressure [Left] O2 Sat by Pulse 99 99 100 Oximetry 08/14/18 08/14/18 08/14/18 16:45 16:52 19:01 Temperature Pulse Rate 100 H 100 H Respiratory 14 16 13 Rate Blood Pressure 114/50 101/53 Blood Pressure 101/53 [Left] O2 Sat by Pulse 100 100 97 Oximetry 08/14/18 08/14/18 08/14/18 19:19 19:21 19:31 Temperature Pulse Rate 104 H 101 H 106 H Respiratory 19 16 21 Rate Blood Pressure 101/53 101/53 101/53 Blood Pressure [Left] O2 Sat by Pulse 100 100 99 Oximetry 08/14/18 08/14/18 08/14/18 19:41 19:51 20:01 Temperature Pulse Rate 95 H 114 H 121 H Respiratory 16 20 17 Rate Blood Pressure 101/53 101/53 101/53 Blood Pressure [Left] O2 Sat by Pulse 100 99 97 Oximetry 08/14/18 08/14/18 20:11 20:32 Temperature Pulse Rate 66 82 Respiratory 18 20 Rate Blood Pressure 129/66 129/66 Blood Pressure [Left] O2 Sat by Pulse 100 Oximetry ED Medical Decision Making - Lab Data Result diagrams: 08/14/18 16:06 08/14/18 16:06 - EKG Data -: EKG Interpreted by Ia EKG shows normal: sinus rhythm, axis, intervals, QRS complexes, ST-T waves Rate: normal - EKG Data Interpretation: no acute changes, other (Afib) - Radiology Data Radiology results: report reviewed, image reviewed - Medical Decision Making - syncope w/ new-onset Afib - D-dimer elevated, V/Q scan low prob for PE - EKG shows no ST changes, only Afib - will admit to hospitalist, Dr Thomas, for further evaluation - Differential Diagnosis arrythmia, vasovagal syncope, CVA, PE Critical care attestation.: If time is entered above; I have spent that time in minutes in the direct care of this critically ill patient, excluding procedure time. ED Disposition Clinical Impression: Syncope, New onset atrial fibrillation Disposition: OP ADMIT IP TO THIS HOSP Is pt being admited?: Yes Condition: Stable Time of Disposition: 19:39
[2018-08-14 16:36] LABS: Basophils # (Auto) 0.1 K/mm3 (0.0-0.1); Basophils % (Auto) 0.7 % (0.0-1.8); Eosinophils % (Auto) 0.6 % (0.0-4.3); Hematocrit 39.7 % (30.3-42.9); Lymphocytes # (Auto) 1.7 K/mm3 (1.2-5.4); Lymphocytes % (Auto) 24.3 % (13.4-35.0); Mean Corpuscular HGB Conc 33 % (30-34); Mean Corpuscular Volume 93 fl (79-97); Monocytes # (Auto) 0.6 K/mm3 (0.0-0.8); Monocytes % (Auto) 8.9 % (0.0-7.3); Platelet Count 213 K/mm3 (140-440); Red Blood Count 4.28 M/mm3 (3.65-5.03); Red Cell Distribution Width 14.7 % (13.2-15.2)
[2018-08-14 16:47] LABS: INR 0.92 (0.87-1.13)
[2018-08-14 16:57] LABS: Albumin 4.1 g/dL (3.9-5); Calcium 9.9 mg/dL (8.4-10.2)
[2018-08-14 17:01] LABS: Partial Thromboplastin Time 26.4 Sec. (24.2-36.6)
[2018-08-14 17:03] LABS: Free T4 (Free Thyroxine) 1.16 ng/dL (0.76-1.46)
[2018-08-14] MEDS ORDERED: NACL 0.9% 1000 ML 1,000 ML IV ONE (17:04)
--- NOTE | 2018-08-14 17:50 | XRay Report ---
PROCEDURE: Chest. TECHNIQUE: Portable AP view. HISTORY: Syncope. COMPARISONS: None. FINDINGS: The heart size is mildly enlarged. There is mild tortuosity of the thoracic aorta. The lungs are hany r and well expanded. There are no pleural effusions. The soft tissues are unremarkable. The regional skeleton appears intact. IMPRESSION: Mild cardiomegaly. This document is electronically signed by Edward Gonzales MD., August 14 2018 05:49:07 PM ET
[2018-08-14 17:51] LABS: Bacteria,Urine 1+ /HPF (Negative); Bilirubin,Urine NEG (Negative); Blood,Urine NEG (Negative); Color,Urine Straw (Yellow); Mucus,Urine FEW /HPF; Protein,Urine <15 mg/dL mg/dL (Negative); Urobilinogen,Urine < 2.0 mg/dL (<2.0)
--- NOTE | 2018-08-14 18:24 | Cat Scan Report ---
PROCEDURE: CT HEAD/BRAIN WO CON TECHNIQUE: Spiral CT imaging of the brain was obtained without IV contrast. HISTORY: syncope COMPARISONS: FINDINGS: Brain: There is no evidence of intracranial hemorrhage. No parenchymal hemorrhage is seen. No mass lesions or mass effect is identified. No abnormal extra-axial fluid collections or masses are seen. There is some decreased density seen in the periventricular white matter without mass effect. This i s fairly symmetric and does not exhibit any mass effect consistent with gliosis probably on the basis of microvascular disease or white matter changes of aging. Ventricles: The ventricles are normal size and are midline.. Bone Windows: No evidence of fracture. Paranasal sinuses: Visualized portions are clear. Mastoid air cells: Clear. IMPRESSION: Findings suggest minimal gliosis. No acute abnormalities are identified. This document is electronically signed by Rubio Harrison MD., August 14 2018 06:22:11 PM ET
--- NOTE | 2018-08-14 19:25 | Nuclear Medicine Report ---
PROCEDURE: NM LUNG SCAN PERF/VENT TECHNIQUE: Ventilation perfusion scan Fusion study performed following intravenous administration of 4.69 mCi technetium 99m MAA Ventilation study performed with 20.1 mCi 133 xenon gas HISTORY: syncope, elevated d-dimer COMPARISONS: Correlated with chest radiograph of same date FINDINGS: There is homogeneous distribution of radiotracer on perfusion study. No perfusion defects are identif ied. On the ventilation study there is normal distribution and washout. IMPRESSION: Negative. No scintigraphic evidence for acute pulmonary embolus. This document is electronically signed by Roc Dinero MD., August 14 2018 07:23:37 PM ET
--- NOTE | 2018-08-14 19:33 | History and Physical Report ---
History of Present Illness Chief complaint: I passed out History of present illness: 62 YO Female with MO, HTN, OA, Asthma, DJD, Migraine Headache presents to ED for evaluation. Pt states that she lost consciousness while at work. Pt states that she experienced chest palpitations followed by a sudden onset of diaphoresis, and "feeling hot all over", and then began feeling dizzy and lost consciousness. EMS notified, and upon arrival the patient was back to her usual state of health. Pt transported to [facility]. Pt seen and evaluated in ED and found to have new onset Atrial Fib as well as ARF. Pt admitted to telemetry. Cardiology consulted in ED. Pt treated with medical cardioversion with Cardizem. Pt denies fever, ch ills, CP, NVD, Trauma, Skin Rash, Productive Cough, BRBPR, Unilateral leg swelling, calf pain, prolonged travel/immobility, individual/family history of DVT/PE/Blood Clotting Disorder. No prior admission for review. All listed medication reconciled at time of exam. Chads 2Vasc Score:2 Past History Past Medical History: arthritis, hypertension, migraines, other (MO, Asthma) Past Surgical History: appendectomy, tonsillectomy, bowel surgery Social history: single. denies: smoking, alcohol abuse, prescription drug abuse Family history: hypertension Medications and Allergies Allergies Allergy/AdvReac Type Severity Reaction Status Date / Time iodine Allergy Severe Rash Verified 04/18/14 06:57 ibuprofen [From Motrin] AdvReac Severe Nausea, Verified 04/18/14 06:58 vomiting Home Medications Medication Instructions Recorded Confirmed Last Taken Type NIFEdipine XL [Procardia Xl] 90 mg PO QDAY 03/03/13 11/16/17 11/16/17 History 0430 ALBUTEROL NEB's [Proventil 0.083% 2.5 mg IH PRN PRN 11/07/17 11/16/17 6 Months Ago History NEBS] ~05/19/17 Aspirin [Aspirin EC] 325 mg PO DAILY 11/07/17 11/16/17 11/09/17 09:00 History Atorvastatin Calcium [Lipitor] 20 mg PO DAILY 11/07/17 11/16/17 11/14/17 21:00 History Losartan Potassium [Cozaar] 50 mg PO DAILY 11/07/17 11/16/17 11/16/17 History 0430 Review of Systems Constitutional: no weight loss, no weight gain, no fever, no chills Ears, nose, mouth and throat: no ear pain, no ear discharge, no tinnitis, no decreased hearing, no nose pain, no nasal congestion Breasts: no change in shape, no swelling, no mass Cardiovascular: palpitations, syncope, shortness of breath, high blood pressure, no chest pain, no orthopnea, no dyspnea on exertion, no paroxysmal nocturnal dyspnea Respiratory: no cough, no cough with sputum, no excessive sputum Gastrointestinal: no nausea, no vomiting, no diarrhea, no constipation Genitourinary Female: no pelvic pain, no flank pain, no dysuria, no urinary frequency, no urgency Rectal: no pain, no incontinence, no bleeding Musculoskeletal: no neck stiffness, no neck pain, no shooting arm pain, no arm numbness/tingling, no low back pain Integumentary: no rash, no pruritis, no redness, no sores, no wounds Neurological: no paralysis, no weakness, no parathesias, no numbness, no tingling, no seizures Psychiatric: no anxiety, no memory loss, no change in sleep habits, no sleep disturbances, no insomnia, no hypersomnia, no change in appetite Endocrine: no cold intolerance, no heat intolerance, no polyphagia, no excessive thirst, no polydipsia, no nocturia Hematologic/Lymphatic: no easy bruising, no easy bleeding, no lymphedema Allergic/Immunologic: no urticaria, no allergic rhinitis, no wheezing, no persistent infections Exam - Constitutional Vitals: Temp Pulse Resp BP Pulse Ox 98.3 F 94 H 18 101/53 100 08/14/18 15:28 08/14/18 19:01 08/14/18 19:01 08/14/18 19:01 08/14/18 16:52 General appearance: Present: mild distress, obese - EENT Eyes: Present: PERRL ENT: hearing intact, clear oral mucosa - Neck Neck: Present: supple, normal ROM - Respiratory Respiratory effort: normal Respiratory: bilateral: CTA - Cardiovascular Rhythm: other (tachycardia) Heart Sounds: Present: S1 & S2. Absent: rub, click - Extremities Extremities: pulses symmetrical, No edema Peripheral Pulses: within normal limits - Abdominal General gastrointestinal: Present: soft, non-tender, non-distended, normal bowel sounds Female genitourinary: Present: normal - Integumentary Integumentary: Present: clear, warm, dry - Musculoskeletal Musculoskeletal: gait normal, strength equal bilaterally - Psychiatric Psychiatric: appropriate mood/affect, intact judgment & insight - Neurologic Neurologic: CNII-XII intact, moves all extremities Results - Labs CBC & Chem 7: 08/14/18 16:06 08/14/18 16:06 Labs: Abnormal lab results 08/14/18 08/14/18 08/14/18 Range/Units 16:06 16:06 16:24 [place] % (Auto) 8.9 H (0.0-7.3) % D-Dimer 1573.04 H (0-234) ng/mlDDU Potassium 5.3 H (3.6-5.0) mmol/L BUN 29 H (7-17) mg/dL Creatinine 1.4 H (0.7-1.2) mg/dL Glucose 109 H (65-100) mg/dL Assessment and Plan - Patient Problems (1) ARF (acute renal failure) Current Visit: Yes Status: Acute Qualifiers: Acute renal failure type: with acute tubular necrosis Qualified Code(s): N17.0 - Acute kidney failure with tubular necrosis Plan to address problem: IVF resuscitation therapy, monitor uop q shift, urine electrolytes, renal ultrasound (2) New onset atrial fibrillation Current Visit: Yes Status: Acute Plan to address problem: Medical cardioversion with cardizem, admit to telemetry, cardiology consulted in ED, thyroid panel, rate control, CHADS 2Vasc score:2, Therapeutic anticoagulation. (3) Syncope Current Visit: Yes Status: Acute Plan to address problem: carotid doppler, CT Head, neuro check, (4) HTN (hypertension) Current Visit: No Status: Acute Qualifiers: Hypertension type: essential hypertension Qualified Code(s): I10 - E ssential (primary) hypertension Plan to address problem: monitor bp q shift, continue current therapy (5) Obesity hypoventilation syndrome Current Visit: Yes Status: Acute Plan to address problem: supplemental oxygen, pulse oximetry, nebulizer therapy, balanced diet, increased physical activity at discharge, bariatric surgery referral as outpatient. (6) DVT prophylaxis Current Visit: No Status: Acute Plan to address problem: SCD to BLE while in bed, therapeutic anticoagualtion
[2018-08-14] MEDS ORDERED: TYLENOL PO PRN (19:51)
[2018-08-14] MEDS ORDERED: ZOFRAN IV PRN (19:51)
[2018-08-14] MEDS ORDERED: SODIUM CHLORIDE FLUSH SYRINGE 10 ML IV PRN (19:51)
[2018-08-14] MEDS ORDERED: PROVENTIL IH PRN (19:51)
[2018-08-14] MEDS ORDERED: CARDIZEM IV ONE (19:53)
[2018-08-14] MEDS ORDERED: OXYCODONE HCL 15 MG PO PRN (19:53)
[2018-08-14] MEDS ORDERED: TORADOL PO PRN (19:53)
[2018-08-14] MEDS ORDERED: HEPARIN SUB-Q SCH (22:00)
[2018-08-14] MEDS ORDERED: MOBIC PO SCH (22:00)
[2018-08-14] MEDS: ELIQUIS PO SCH (22:37)
[2018-08-14] MEDS: SODIUM CHLORIDE FLUSH SYRINGE 10 ML IV SCH (22:38)
[2018-08-15 05:46] LABS: Basophils % (Auto) 0.7 % (0.0-1.8); Eosinophils # (Auto) 0.1 K/mm3 (0.0-0.4); Eosinophils % (Auto) 1.5 % (0.0-4.3); Hematocrit 36.4 % (30.3-42.9); Hemoglobin 12.1 gm/dl (10.1-14.3); Lymphocytes # (Auto) 1.5 K/mm3 (1.2-5.4); Lymphocytes % (Auto) 25.9 % (13.4-35.0); Mean Corpuscular HGB Conc 33 % (30-34); Mean Corpuscular Volume 92 fl (79-97); Monocytes # (Auto) 0.5 K/mm3 (0.0-0.8); Monocytes % (Auto) 8.8 % (0.0-7.3); Platelet Count 222 K/mm3 (140-440); Red Blood Count 3.96 M/mm3 (3.65-5.03)
[2018-08-15 06:10] LABS: BUN/Creatinine Ratio 26; Blood Urea Nitrogen 23 mg/dL (7-17); Calcium 9.1 mg/dL (8.4-10.2); Hemolysis Index 30
[2018-08-15 08:50] LABS: Creatinine,Urine 81.2 mg/dL (0.1-20.0)
[2018-08-15] MEDS: COZAAR PO SCH (09:07)
[2018-08-15] MEDS: SODIUM CHLORIDE FLUSH SYRINGE 10 ML IV SCH ×2 (09:08→21:28)
[2018-08-15] MEDS: ELIQUIS PO SCH ×2 (09:08→21:27)
[2018-08-15] MEDS: ECOTRIN PO SCH (09:08)
[2018-08-15] MEDS: PROCARDIA XL PO SCH (09:08)
[2018-08-15] MEDS ORDERED: PNV95 PO SCH (10:00)
[2018-08-15] MEDS ORDERED: [UNRECOGNIZED DRUG - OTHER] PO SCH (10:00)
[2018-08-15] MEDS ORDERED: FERROUS FUMARATE PO SCH (10:00)
--- NOTE | 2018-08-15 10:40 | Consultation ---
History of Present Illness Consult date: 08/15/18 Consult reason: syncope History of present illness: 62 year old female admitted post syncope. She has a history of recurrent syncope with 2-3 episodes occurring within the last year. She denies chest pain. She reports LOC for about 5 minutes. She denies seizures. Previous work-up at [facility] 10/2017 revealed normal stress test and normal LVEF. ECG this admission is showing new onset atrial fibrillation with a controlled ventricular rate. No previous history of AF. Past History Past Medical History: arthritis, hypertension, migraines, other ([place], Asthma) Past Surgical History: appendectomy, tonsillectomy, bowel surgery Social history: single. denies: smoking, alcohol abuse, prescription drug abuse Family history: hypertension Medications and Allergies Allergies Allergy/AdvReac Type Severity Reaction Status Date / Time iodine Allergy Severe Rash Verified 04/18/14 06:57 ibuprofen [From Motrin] AdvReac Severe Nausea, Verified 04/18/14 06:58 vomiting Home Medications Medication Instructions Recorded Confirmed Last Taken Type NIFEdipine XL [Procardia Xl] 90 mg PO QDAY 03/03/13 08/14/18 11/16/17 History 0430 ALBUTEROL NEB's [Proventil 0.083% 2.5 mg IH PRN PRN 11/07/17 08/14/18 6 Months Ago History NEBS] ~05/19/17 Aspirin [Aspirin EC] 325 mg PO DAILY 11/07/17 08/14/18 11/09/17 09:00 History Atorvastatin Calcium [Lipitor] 20 mg PO DAILY 11/07/17 08/14/18 11/14/17 21:00 History Losartan Potassium [Cozaar] 50 mg PO DAILY 11/07/17 08/14/18 11/16/17 History 0430 Active Meds: Active Medications Acetaminophen (Tylenol) 650 mg PO Q4H PRN PRN Reason: Pain MILD(1-3)/Fever >100.5/RHODES Albuterol (Proventil) 2.5 mg IH Q4HRT PRN PRN Reason: Shortness Of Breath Apixaban (Eliquis) 5 mg PO Q12HR [facility]; Protocol Last Admin: 08/15/18 09:08 Dose: 5 mg Documented by: Aspirin (Ecotrin) 325 mg PO DAILY [facility] Last Admin: 05/01/19 09:08 Dose: 325 mg Documented by: Atorvastatin Calcium (Lipitor) 20 mg PO DAILY [facility] Last Admin: 08/15/18 09:08 Dose: 20 mg Documented by: Losartan Potassium (Cozaar) 50 mg PO DAILY [facility] Last Admin: 08/15/18 09:07 Dose: 50 mg Documented by: Nifedipine (Procardia Xl) 90 mg PO QDAY [facility] Last Admin: 08/15/18 09:08 Dose: 90 mg Documented by: Ondansetron HCl (Zofran) 4 mg IV Q8H PRN PRN Reason: Nausea And Vomiting Sodium Chloride (Sodium Chloride Flush Syringe 10 Ml) 10 ml IV BID [facility] Last Admin: 08/15/18 09:08 Dose: 10 ml Documented by: Sodium Chloride (Sodium Chloride Flush Syringe 10 Ml) 10 ml IV PRN PRN PRN Reason: LINE FLUSH Review of Systems All systems: negative Physical Examination Vital Signs Pulse Ox 98 08/14/18 15:24 General appearance: no acute distress HEENT: Positive: PERRL Neck: Positive: neck supple Cardiac: Positive: Reg Rate and Rhythm Lungs: Positive: Normal Exam Neuro: Positive: Grossly Intact Abdomen: Positive: Soft Extremities: Present: normal Results 08/15/18 05:32 08/15/18 05:27 Cardiac Enzymes 08/14/18 Range/Units 16:06 AST 26 (5-40) units/L Coagulation 08/14/18 Range/Units 16:24 PT 12.9 (12.2-14.9) Sec. INR 0.92 (0.87-1.13) APTT 26.4 (24.2-36.6) Sec. CBC 08/14/18 08/15/18 Range/Units 16:06 05:32 WBC 7.0 5.8 (4.5-11.0) K/mm3 RBC 4.28 3.96 (3.65-5.03) M/mm3 Hgb 13.0 12.1 (10.1-14.3) gm/dl Hct 39.7 36.4 (30.3-42.9) % Plt Count 213 222 (140-440) K/mm3 Lymph # 1.7 1.5 (1.2-5.4) K/mm3 [place] # 0.6 0.5 (0.0-0.8) K/mm3 Eos # 0.0 0.1 (0.0-0.4) K/mm3 Baso # 0.1 0.0 (0.0-0.1) K/mm3 Comprehensive Metabolic Panel 08/14/18 08/15/18 Range/Units 16:06 05:27 Sodium 137 140 (137-145) mmol/L Potassium 5.3 H 4.4 (3.6-5.0) mmol/L Chloride 100.3 104.6 (98-107) mmol/L Carbon Dioxide 23 26 (22-30) mmol/L BUN 29 H 23 H (7-17) mg/dL Creatinine 1.4 H 0.9 (0.7-1.2) mg/dL Glucose 109 H 102 H (65-100) mg/dL Calcium 9.9 9.1 (8.4-10.2) mg/dL AST 26 (5-40) units/L ALT 9 (7-56) units/L Alkaline Phosphatase 58 (35-129) units/L Total Protein 7.8 (6.3-8.2) g/dL Albumin 4.1 (3.9-5) g/dL - EKG Interpretation EKG: sinus rhythm EKG interpretations - Telemetry EKG Rhythm: Sinus Rhythm Assessment and Plan Syncope - recurrent MPI 10/2017 at [facility] - Normal Echo 10/2017 at [facility] - normal LVEF EEG 05/2017 - questionable discharges seen in isolation only a few times on routine EEG VQ scan - negative this admission Paroxysmal atrial fibrillation - new onset CHADSVASC = 4 (female, hypertension, history of TIA) Systemic Hypertension LARY on CPAP therapy at home Recommendations: Neuro evaluation and Ambulatory EEG is recommended based on [facility] EEG findings No further cardiac work-up is needed Start eliquis 5 mg po bid for VTE prophylaxis Start low dose toprol XL
--- NOTE | 2018-08-15 11:30 | Ultrasound Report ---
ULTRASOUND RENAL INDICATION: Renal failure. COMPARISON: None similar. FINDINGS: Renal sonography suggests normal/top normal renal cortical echogenicity and somewhat coarse adjacent imaged right hepatic lobe, appearing prominent/possibly enlarged craniocaudal at approximately 20 cm length. Grossly preserved renal contours. No hydronephrosis. RIGHT KIDNEY measures 10.8 x 3.8 x 5 cm with cortical thickness of 1 cm. LEFT KIDNEY estimated at 11 x 5.7 x 4.4 cm with cortical thickness of 1.1 cm. URINARY BLADDER suboptimally distended and assessed. CONCLUSION: No acute renal sonographic abnormality with possible hepatomegaly, as described. Please correlate. Thank you for the opportunity to participate in this patient's care.
[2018-08-15] MEDS: TOPROL XL PO SCH (13:13)
--- NOTE | 2018-08-15 15:53 | Progress Note ---
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 She was found to be in new onset afib with RVR. * MPI 10/2017 at [facility] - Normal * Echo 10/2017 at [facility] - normal LVEF * EEG 05/2017 - questionable discharges seen in isolation only a few times on routine EEG * VQ scan - negative this admission Syncope, recurrent, workup in progress: questionable abn EEG at [facility], repeat EEG and consulted Neurology New Onset Atrial fibrillation: ECHO reviewed, Start eliquis 5 mg po bid for VTE prophylaxis, Start low dose toprol XL ARF with atn, poa: renal u/s unremarkable, continue IVF Hypertension: low salt LARY: consult Respiratory/cpap, 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 Follow-up on current diagnosis of syncope. No overnight events reported to me. Patient denies any chest pain, shortness breath, nausea/vomiting or severe headaches. Imaging, nursing note, chart, labs and old chart reviewed. Discussed with patient. Hospitalist Physical - Physical exam Narrative exam: Gen: WDWN, NAD, Awake, Alert, Orientated HEENT: NCAT, EOMI, PERRL, OP Clear Neck: supple, no adenopathy, no thyromegaly, no JVD CVS/Heart: irregular irregular, normal S1S2, pulses present bilaterally Chest/Lungs: CTA B, Symmetrical chest expansion, good air entry bilaterally GI/Abdomen: soft, NTND, good bowel sounds, no guarding or rebound /Bladder: no suprapubic tenderness, no CVA or paraspinal tenderness Extermity/Skin: no c/c/e, no obvious rash MSK: FROM x 4 Neuro: CN 2-12 grossly intact, no new focal deficits Psych: calm - Constitutional Vitals: Temp Pulse Resp BP Pulse Ox 98.4 F 72 18 127/68 99 08/15/18 08:11 08/15/18 13:13 08/15/18 10:53 08/15/18 13:13 08/15/18 10:00 General appearance: Present: no acute distress Results - Labs CBC & Chem 7: 08/15/18 05:32 08/15/18 05:27 Labs: Laboratory Last Values WBC 5.8 K/mm3 (4.5-11.0) 08/15/18 05:32 RBC 3.96 M/mm3 (3.65-5.03) 08/15/18 05:32 Hgb 12.1 gm/dl (10.1-14.3) 08/15/18 05:32 Hct 36.4 % (30.3-42.9) 08/15/18 05:32 MCV 92 fl (79-97) 08/15/18 05:32 MCH 31 pg (28-32) 08/15/18 05:32 MCHC 33 % (30-34) 08/15/18 05:32 RDW 15.0 % (13.2-15.2) 08/15/18 05:32 Plt Count 222 K/mm3 (140-440) 08/15/18 05:32 Lymph % (Auto) 25.9 % (13.4-35.0) 08/15/18 05:32 [place] % (Auto) 8.8 % (0.0-7.3) H 08/15/18 05:32 Eos % (Auto) 1.5 % (0.0-4.3) 08/15/18 05:32 Baso % (Auto) 0.7 % (0.0-1.8) 08/15/18 05:32 Lymph # 1.5 K/mm3 (1.2-5.4) 08/15/18 05:32 [place] # 0.5 K/mm3 (0.0-0.8) 08/15/18 05:32 Eos # 0.1 K/mm3 (0.0-0.4) 08/15/18 05:32 Baso # 0.0 K/mm3 (0.0-0.1) 08/15/18 05:32 Seg Neutrophils % 63.1 % (40.0-70.0) 08/15/18 05:32 Seg Neutrophils # 3.7 K/mm3 (1.8-7.7) 08/15/18 05:32 PT 12.9 Sec. (12.2-14.9) 08/14/18 16:24 INR 0.92 (0.87-1.13) 08/14/18 16:24 APTT 26.4 Sec. (24.2-36.6) 08/14/18 16:24 D-Dimer 1573.04 ng/mlDDU (0-234) H 08/14/18 16:24 Sodium 140 mmol/L (137-145) 08/15/18 05:27 Potassium 4.4 mmol/L (3.6-5.0) 08/15/18 05:27 Chloride 104.6 mmol/L (98-107) 08/15/18 05:27 Carbon Dioxide 26 mmol/L (22-30) 08/15/18 05:27 Anion Gap 14 mmol/L 08/15/18 05:27 BUN 23 mg/dL (7-17) H 08/15/18 05:27 Creatinine 0.9 mg/dL (0.7-1.2) 08/15/18 05:27 Estimated GFR > 60 ml/min 08/15/18 05:27 BUN/Creatinine Ratio 26 % 08/15/18 05:27 Glucose 102 mg/dL (65-100) H 08/15/18 05:27 Calcium 9.1 mg/dL (8.4-10.2) 08/15/18 05:27 Total Bilirubin 0.40 mg/dL (0.1-1.2) 08/14/18 16:06 AST 26 units/L (5-40) 08/14/18 16:06 ALT 9 units/L (7-56) 08/14/18 16:06 Alkaline Phosphatase 58 units/L (35-129) 08/14/18 16:06 Troponin T < 0.010 ng/mL (0.00-0.029) 08/14/18 19:58 NT-Pro-B Natriuret Pep 308.3 pg/mL (0-900) 08/14/18 20:05 Total Protein 7.8 g/dL (6.3-8.2) 08/14/18 16:06 Albumin 4.1 g/dL (3.9-5) 08/14/18 16:06 Albumin/Globulin Ratio 1.1 % 08/14/18 16:06 TSH 2.820 mlU/mL (0.270-4.200) 08/14/18 16:06 Free T4 1.16 ng/dL (0.76-1.46) 08/14/18 16:06 Urine Color Straw (Yellow) 08/14/18 17:20 Urine Turbidity Clear (Clear) 08/14/18 17:20 Urine pH 7.0 (5.0-7.0) 08/14/18 17:20 Ur Specific [place] 1.009 (1.003-1.030) 08/14/18 17:20 Urine Protein <15 mg/dl mg/dL (Negative) 08/14/18 17:20 Urine Glucose (UA) Neg mg/dL (Negative) 08/14/18 17:20 Urine Ketones Neg mg/dL (Negative) 08/14/18 17:20 Urine Blood Neg (Negative) 08/14/18 17:20 Urine Nitrite Neg (Negative) 08/14/18 17:20 Urine Bilirubin Neg (Negative) 08/14/18 17:20 Urine Urobilinogen < 2.0 mg/dL (<2.0) 08/14/18 17:20 Ur Leukocyte Esterase Neg (Negative) 08/14/18 17:20 Urine WBC (Auto) 2.0 /HPF (0.0-6.0) 08/14/18 17:20 Urine RBC (Auto) 5.0 /HPF (0.0-6.0) 08/14/18 17:20 U Epithel Cells (Auto) 2.0 /HPF (0-13.0) 08/14/18 17:20 Urine Bacteria (Auto) 1+ /HPF (Negative) 08/14/18 17:20 Urine Mucus Few /HPF 08/14/18 17:20 Urine Creatinine 81.2 mg/dL (0.1-20.0) H 08/15/18 07:40 Urine Sodium 150 mmol/L 08/15/18 07:40 Active Medications - Current Medications Current Medications: Generic Name Dose Route Start Last Admin Trade Name Freq PRN Reason Stop Dose Admin Acetaminophen 650 mg 08/14/18 19:51 Tylenol PO Q4H PRN Pain MILD(1-3)/Fever >100.5/RHODES Albuterol 2.5 mg 08/14/18 19:51 Proventil IH Q4HRT PRN Shortness Of Breath Apixaban 5 mg 08/14/18 22:00 08/15/18 09:08 Eliquis PO 5 mg Q12HR [facility] Administration Protocol Aspirin 325 mg 08/15/18 10:00 08/15/18 09:08 Ecotrin PO 325 mg DAILY [facility] Administration Atorvastatin Calcium 20 mg 08/15/18 10:00 08/15/18 09:08 Lipitor PO 20 mg DAILY [facility] Administration Losartan Potassium 50 mg 08/15/18 10:00 08/15/18 09:07 Cozaar PO 50 mg DAILY [facility] Administration Metoprolol Succinate 50 mg 08/15/18 13:00 08/15/18 13:13 Toprol Xl PO 50 mg QDAY [facility] Administration Nifedipine 90 mg 08/15/18 10:00 08/15/18 09:08 Procardia Xl PO 90 mg QDAY [facility] Administration Ondansetron HCl 4 mg 08/14/18 19:51 Zofran IV Q8H PRN Nausea And Vomiting Sodium Chloride 10 ml 08/14/18 22:00 08/15/18 09:08 Sodium Chloride Flush Syringe 10 Ml IV 10 ml BID [facility] Administration Sodium Chloride 10 ml 08/14/18 19:51 Sodium Chloride Flush Syringe 10 Ml IV PRN PRN LINE FLUSH
--- NOTE | 2018-08-15 18:42 | Consultation ---
History of Present Illness Consult date: 08/15/18 Chief complaint: syncope History of present illness: This is a 62 YO F who has had syncope x 5 now. Had been worked up at [facility] about 1 year prior for a very similar event and told she had a "mild stroke" but was told to follow up with cardiology. Says she was never really told why it was thought that she was passing out. Never told she had a fib before. On this admission found to have a fib and ARF. Did not fel chest pain or fluttering on admission and has not felt that before. Had indeterminate EEG findings at her [facility] stay. Past History Past Medical History: arthritis, hypertension, migraines, other (MO, Asthma) Past Surgical History: appendectomy, tonsillectomy, bowel surgery Social history: single. denies: smoking, alcohol abuse, prescription drug abuse Family history: hypertension Medications and Allergies Allergies Allergy/AdvReac Type Severity Reaction Status Date / Time iodine Allergy Severe Rash Verified 04/18/14 06:57 ibuprofen [From Motrin] AdvReac Severe Nausea, Verified 04/18/14 06:58 vomiting Home Medications Medication Instructions Recorded Confirmed Last Taken Type NIFEdipine XL [Procardia Xl] 90 mg PO QDAY 03/03/13 08/14/18 11/16/17 History 0430 ALBUTEROL NEB's [Proventil 0.083% 2.5 mg IH PRN PRN 11/07/17 08/14/18 6 Months Ago History NEBS] ~05/19/17 Aspirin [Aspirin EC] 325 mg PO DAILY 11/07/17 08/14/18 11/09/17 09:00 History Atorvastatin Calcium [Lipitor] 20 mg PO DAILY 11/07/17 08/14/18 11/14/17 21:00 History Losartan Potassium [Cozaar] 50 mg PO DAILY 11/07/17 08/14/18 11/16/17 History 0430 Active Meds: Active Medications Acetaminophen (Tylenol) 650 mg PO Q4H PRN PRN Reason: Pain MILD(1-3)/Fever >100.5/RHODES Albuterol (Proventil) 2.5 mg IH Q4HRT PRN PRN Reason: Shortness Of Breath Apixaban (Eliquis) 5 mg PO Q12HR [facility]; Protocol Last Admin: 08/15/18 09:08 Dose: 5 mg Documented by: Aspirin (Ecotrin) 325 mg PO DAILY [facility] Last Admin: 08/15/18 09:08 Dose: 325 mg Documented by: Atorvastatin Calcium (Lipitor) 20 mg PO DAILY [facility] Last Admin: 08/15/18 09:08 Dose: 20 mg Documented by: Losartan Potassium (Cozaar) 50 mg PO DAILY [facility] Last Admin: 08/15/18 09:07 Dose: 50 mg Documented by: Metoprolol Succinate (Toprol Xl) 50 mg PO QDAY [facility] Last Admin: 08/15/18 13:13 Dose: 50 mg Documented by: Nifedipine (Procardia Xl) 90 mg PO QDAY [facility] Last Admin: 08/15/18 09:08 Dose: 90 mg Documented by: Ondansetron HCl (Zofran) 4 mg IV Q8H PRN PRN Reason: Nausea And Vomiting Sodium Chloride (Sodium Chloride Flush Syringe 10 Ml) 10 ml IV BID [facility] Last Admin: 08/15/18 09:08 Dose: 10 ml Documented by: Sodium Chloride (Sodium Chloride Flush Syringe 10 Ml) 10 ml IV PRN PRN PRN Reason: LINE FLUSH Review of Systems Neurological: syncope Physical Examination - Vital Signs Vital Signs: Vital Signs Pulse Ox 98 08/14/18 15:24 - Constitutional General appearance: comfortable - EENT EENT: Present: mucous membranes moist - Respiratory Respiratory: Present: lungs clear - Cardiovascular Cardiovascular: Present: regular rate - Gastrointestinal Gastrointestinal: Present: normoactive bowel sounds - Integumentary Integumentary: Present: normal - Neurologic Cranial nerve examination: PERRL, EOMI, V1/V2/V3 grossly intact, face symmetric, tongue midline Speech examination: intact Detailed motor examination: grossly full strength in Reflexes: 1+: ankle, bicep, knee, tricep - Psychiatric Psychiatric: Present: mood/affect appropriate Results - Laboratory Findings CBC and BMP: 08/15/18 05:32 08/15/18 05:27 Abnormal Lab Findings: Abnormal Labs 08/14/18 08/14/18 08/14/18 16:06 16:06 16:24 [place] % (Auto) 8.9 H D-Dimer 1573.04 H Potassium 5.3 H BUN 29 H Creatinine 1.4 H Glucose 109 H Urine Creatinine 08/15/18 08/15/18 08/15/18 05:27 05:32 07:40 [place] % (Auto) 8.8 H D-Dimer Potassium BUN 23 H Creatinine Glucose 102 H Urine Creatinine 81.2 H Assessment and Plan This is a 62 YO F with a spell in the setting of what is thought to be new onset atrial fibrillation. Has had 4 other spells previously. Seizure is in the differential. Recommend: EEG here, if negative would do ambulatory EEG outpatient, neuro follow up MRI Brain seizure precautions No driving as per [place] law x 6 months discussed with pt at length Continue cardiac work up as you are doing If EEG shows persistant epileptiform discharges start Keppra 500 mg BID
--- NOTE | 2018-08-15 18:55 | Vascular Lab Report ---
PROCEDURE: VL CAROTID DUPLEX BILAT TECHNIQUE: Duplex Doppler ultrasound of the common, internal and external carotid arteries and the v ertebral arteries was performed bilaterally. Bone scale imaging, velocity spectral waveform analysis, and color flow Doppler were employed. HISTORY: syncope COMPARISONS: None . Note: Measurement of carotid stenosis is based on flow velocity values that correlate with the [place] Symptomatic Carotid Endarterectomy Trial (NASCET) based stenosis criteria using the internal carotid artery diameter as the denominator for stenosis calculation. FINDINGS: RIGHT carotid artery: Velocities: ICA PSV: 112 cm/sec ICA End diastolic: 35 cm/sec CCA PSV: 77 cm/sec IC/CC ratio: 1.4 5 Plaque/color flow: There is minimal heterogeneous smooth plaque visualized in the carotid bulb exten ding into the internal carotid artery. No high-grade stenosis or occlusion is visualized. . RIGHT vertebral artery: Antegrade systolic and diastolic flow LEFT carotid artery: Velocities: ICA PSV: 89 cm/sec ICA End diastolic: 30 cm/sec CCA PSV: 79 cm/sec IC/CC ratio: 1.13 Plaque/color flow: There is minimal heterogeneous plaque visualized in the carotid bulb extending in to the internal carotid artery. High-grade stenosis or occlusion is visualized. . LEFT vertebral artery: Antegrade systolic and diastolic flow IMPRESSION: 1. RIGHT carotid: No hemodynamically significant (less than 50 percent) internal carotid artery sharee nosis. 2. LEFT carotid: No hemodynamically significant (less than 50 percent) internal carotid artery sten osis. 3. Vertebral arteries: Bilaterally antegrade. This document is electronically signed by Rubio Harrison MD., Aug 15 2018 06:53:34 PM ET
--- NOTE | 2018-08-16 10:11 | Progress Note ---
Assessment and Plan Syncope - recurrent MPI 10/2017 at [facility] - Normal Echo 10/2017 at [facility] - normal LVEF EEG 05/2017 - questionable discharges seen in isolation only a few times on routine EEG VQ scan - negative this admission Paroxysmal atrial fibrillation - new onset initiated on eliquis on Toprol XL for suppression Systemic Hypertension LARY on CPAP therapy at home Continue medial therapy for paroxysmal atrial fibrillation. Subjective Date of service: 08/16/18 Interval history: Patient has no complaints. Stable sinus rhythm on telemetry. Objective Vital Signs Temp Pulse Pulse Resp BP BP Pulse Ox 08/16/18 07:23 97.8 F 50 L 16 102/55 100 08/16/18 04:15 66 08/16/18 03:51 98.4 F 60 15 120/70 96 08/15/18 23:18 98.2 F 53 L 12 103/60 96 08/15/18 22:00 96 08/15/18 20:00 57 L 08/15/18 19:50 98.1 F 81 16 132/81 98 08/15/18 19:46 98.0 F 60 16 115/60 95 08/15/18 16:36 98.6 F 52 L 12 102/55 98 08/15/18 16:21 59 L 112/60 08/15/18 13:13 72 127/68 08/15/18 10:53 18 - Physical Examination General: No Apparent Distress HEENT: Positive: PERRL Neck: Positive: neck supple Cardiac: Positive: Reg Rate and Rhythm Lungs: Positive: Decreased Breath Sounds Neuro: Positive: Grossly Intact Abdomen: Positive: Soft Extremities: Absent: edema
--- NOTE | 2018-08-16 10:43 | Magnetic Resonance Report ---
MRI BRAIN WITHOUT AND WITH CONTRAST: 08/16/18 18:42:00 CLINICAL: Possible seizure. TECHNIQUE: Axial diffusion, T1, FLAIR, gradient echo T2*, and coronal and axial T2 and sagittal T1 plus coronal and axial postcontrast T1 sequences on a 1.5 Stacie magnet. 20.0 cc of Multihance was injected intravenously for the contrast portion of the exam. Consent was obtained prior to the administration of contrast. FINDINGS: Mild global sulcal enlargement for age. The ventricles are normal size. No restricted diffusion. A tiny left basal ganglia chronic lacunar infarct no other chronic infarct identified. Numerous bilateral multifocal periventricular and subcortical white matter hyperintensities. None demonstrate enhancement postcontrast. No mass or enhancing lesion. No hemorrhage, edema or extra-axial collection. No chronic microbleeds on the gradient echo sequence. Normal pituitary and optic chiasm. The brainstem and cerebellum are normal. Intact vascular flow voids. The orbits, sinuses and soft tissues are normal. Normal calvarium and skull base. IMPRESSION: 1. A tiny left basal ganglia chronic lacunar infarct. 2. No evidence of acute/subacute infarct or hemorrhage. 3. No mass. 4. Moderate bilateral chronic white matter microvascular ischemic change. 5. Mild global cortical atrophy.
--- NOTE | 2018-08-16 14:00 | Progress Note ---
Assessment and Plan Assessment and plan: Patient is a 62 yo woman with a history of with MO, HTN, OA, Asthma, DJD, Migraine Headache and LARY on cpap at home (has not seen shredder/granulator operator for lary) who presented with syncope. She was found to be in new onset afib with RVR. * MPI 10/2017 at [facility] - Normal * Echo 10/2017 at [facility] - normal LVEF * EEG 05/2017 - questionable discharges seen in isolation only a few times on routine EEG * VQ scan - negative this admission Syncope, recurrent, workup in progress: questionable abn EEG at [facility], repeat EEG and consulted Neurology New Onset Atrial fibrillation: ECHO reviewed, Start eliquis 5 mg po bid for VTE prophylaxis, Start low dose toprol XL ARF with atn, poa: renal u/s unremarkable, continue IVF Hypertension: low salt LARY: consult Respiratory/cpap, needs to see Assistant Manager Trainee outpatient Morbid obesity, BMI 54.9: lifestyle modification full code DVT ppx reviewed MRI brain wo contrast IMPRESSION: 1. A tiny left basal ganglia chronic lacunar infarct. 2. No evidence of acute/subacute infarct or hemorrhage. 3. No mass. 4. Moderate bilateral chronic white matter microvascular ischemic change. 5. Mild global cortical atrophy. EEG still pending, History Interval history: Patient was seen and examined. Follow-up on current diagnosis of syncope. No overnight events reported to me. Patient denies any chest pain, shortness breath, nausea/vomiting or severe headaches. Imaging, nursing note, chart, labs and old chart reviewed. Discussed with patient. Hospitalist Physical - Physical exam Narrative exam: Gen: WDWN, NAD, Awake, Alert, Orientated HEENT: NCAT, EOMI, PERRL, OP Clear Neck: supple, no adenopathy, no thyromegaly, no JVD CVS/Heart: irregular irregular, normal S1S2, pulses present bilaterally Chest/Lungs: CTA B, Symmetrical chest expansion, good air entry bilaterally GI/Abdomen: soft, NTND, good bowel sounds, no guarding or rebound /Bladder: no suprapubic tenderness, no CVA or paraspinal tenderness Extermity/Skin: no c/c/e, no obvious rash MSK: FROM x 4 Neuro: CN 2-12 grossly intact, no new focal deficits Psych: calm - Constitutional Vitals: Temp Pulse Resp BP Pulse Ox 97.8 F 50 L 16 102/55 100 08/16/18 07:23 08/16/18 07:23 08/16/18 07:23 08/16/18 07:23 08/16/18 13:04 General appearance: Present: no acute distress Results - Labs CBC & Chem 7: 08/15/18 05:32 08/15/18 05:27 Labs: Laboratory Last Values WBC 5.8 K/mm3 (4.5-11.0) 08/15/18 05:32 RBC 3.96 M/mm3 (3.65-5.03) 08/15/18 05:32 Hgb 12.1 gm/dl (10.1-14.3) 08/15/18 05:32 Hct 36.4 % (30.3-42.9) 08/15/18 05:32 MCV 92 fl (79-97) 08/15/18 05:32 MCH 31 pg (28-32) 08/15/18 05:32 MCHC 33 % (30-34) 08/15/18 05:32 RDW 15.0 % (13.2-15.2) 08/15/18 05:32 Plt Count 222 K/mm3 (140-440) 08/15/18 05:32 Lymph % (Auto) 25.9 % (13.4-35.0) 08/15/18 05:32 [place] % (Auto) 8.8 % (0.0-7.3) H 08/15/18 05:32 Eos % (Auto) 1.5 % (0.0-4.3) 08/15/18 05:32 Baso % (Auto) 0.7 % (0.0-1.8) 08/15/18 05:32 Lymph # 1.5 K/mm3 (1.2-5.4) 08/15/18 05:32 [place] # 0.5 K/mm3 (0.0-0.8) 08/15/18 05:32 Eos # 0.1 K/mm3 (0.0-0.4) 08/15/18 05:32 Baso # 0.0 K/mm3 (0.0-0.1) 08/15/18 05:32 Seg Neutrophils % 63.1 % (40.0-70.0) 08/15/18 05:32 Seg Neutrophils # 3.7 K/mm3 (1.8-7.7) 08/15/18 05:32 PT 12.9 Sec. (12.2-14.9) 08/14/18 16:24 INR 0.92 (0.87-1.13) 08/14/18 16:24 APTT 26.4 Sec. (24.2-36.6) 08/14/18 16:24 D-Dimer 1573.04 ng/mlDDU (0-234) H 08/14/18 16:24 Sodium 140 mmol/L (137-145) 08/15/18 05:27 Potassium 4.4 mmol/L (3.6-5.0) 08/15/18 05:27 Chloride 104.6 mmol/L (98-107) 08/15/18 05:27 Carbon Dioxide 26 mmol/L (22-30) 08/15/18 05:27 Anion Gap 14 mmol/L 08/15/18 05:27 BUN 23 mg/dL (7-17) H 08/15/18 05:27 Creatinine 0.9 mg/dL (0.7-1.2) 08/15/18 05:27 Estimated GFR > 60 ml/min 08/15/18 05:27 BUN/Creatinine Ratio 26 % 08/15/18 05:27 Glucose 102 mg/dL (65-100) H 08/15/18 05:27 Calcium 9.1 mg/dL (8.4-10.2) 08/15/18 05:27 Total Bilirubin 0.40 mg/dL (0.1-1.2) 08/14/18 16:06 AST 26 units/L (5-40) 08/14/18 16:06 ALT 9 units/L (7-56) 08/14/18 16:06 Alkaline Phosphatase 58 units/L (35-129) 08/14/18 16:06 Troponin T < 0.010 ng/mL (0.00-0.029) 08/14/18 19:58 NT-Pro-B Natriuret Pep 308.3 pg/mL (0-900) 08/14/18 20:05 Total Protein 7.8 g/dL (6.3-8.2) 08/14/18 16:06 Albumin 4.1 g/dL (3.9-5) 08/14/18 16:06 Albumin/Globulin Ratio 1.1 % 08/14/18 16:06 TSH 2.820 mlU/mL (0.270-4.200) 08/14/18 16:06 Free T4 1.16 ng/dL (0.76-1.46) 08/14/18 16:06 Urine Color Straw (Yellow) 08/14/18 17:20 Urine Turbidity Clear (Clear) 08/14/18 17:20 Urine pH 7.0 (5.0-7.0) 08/14/18 17:20 Ur Specific [place] 1.009 (1.003-1.030) 08/14/18 17:20 Urine Protein <15 mg/dl mg/dL (Negative) 08/14/18 17:20 Urine Glucose (UA) Neg mg/dL (Negative) 08/14/18 17:20 Urine Ketones Neg mg/dL (Negative) 08/14/18 17:20 Urine Blood Neg (Negative) 08/14/18 17:20 Urine Nitrite Neg (Negative) 08/14/18 17:20 Urine Bilirubin Neg (Negative) 08/14/18 17:20 Urine Urobilinogen < 2.0 mg/dL (<2.0) 08/14/18 17:20 Ur Leukocyte Esterase Neg (Negative) 08/14/18 17:20 Urine WBC (Auto) 2.0 /HPF (0.0-6.0) 08/14/18 17:20 Urine RBC (Auto) 5.0 /HPF (0.0-6.0) 08/14/18 17:20 U Epithel Cells (Auto) 2.0 /HPF (0-13.0) 08/14/18 17:20 Urine Bacteria (Auto) 1+ /HPF (Negative) 08/14/18 17:20 Urine Mucus Few /HPF 08/14/18 17:20 Urine Creatinine 81.2 mg/dL (0.1-20.0) H 08/15/18 07:40 Urine Sodium 150 mmol/L 08/15/18 07:40 Active Medications - Current Medications Current Medications: Generic Name Dose Route Start Last Admin Trade Name Freq PRN Reason Stop Dose Admin Acetaminophen 650 mg 08/14/18 19:51 08/16/18 03:58 Tylenol PO 650 mg Q4H PRN Administration Pain MILD(1-3)/Fever >100.5/RHODES Albuterol 2.5 mg 08/14/18 19:51 Proventil IH Q4HRT PRN Shortness Of Breath Apixaban 5 mg 08/14/18 22:00 08/15/18 21:27 Eliquis PO 5 mg Q12HR MALCOM Administration Protocol Aspirin 325 mg 08/15/18 10:00 08/15/18 09:08 Ecotrin PO 325 mg DAILY MALCOM Administration Atorvastatin Calcium 20 mg 08/15/18 10:00 08/15/18 09:08 Lipitor PO 20 mg DAILY MALCOM Administration Losartan Potassium 50 mg 08/15/18 10:00 08/15/18 09:07 Cozaar PO 50 mg DAILY MALCOM Administration Metoprolol Succinate 50 mg 08/15/18 13:00 08/15/18 13:13 Toprol Xl PO 50 mg QDAY MALCOM Administration Nifedipine 90 mg 08/15/18 10:00 08/15/18 09:08 Procardia Xl PO 90 mg QDAY MALCOM Administration Ondansetron HCl 4 mg 08/14/18 19:51 Zofran IV Q8H PRN Nausea And Vomiting Sodium Chloride 10 ml 08/14/18 22:00 08/15/18 21:28 Sodium Chloride Flush Syringe 10 Ml IV 10 ml BID MALCOM Administration Sodium Chloride 10 ml 08/14/18 19:51 Sodium Chloride Flush Syringe 10 Ml IV PRN PRN LINE FLUSH
[2018-08-16] MEDS: ELIQUIS PO SCH ×2 (14:15→22:13)
[2018-08-16] MEDS: TOPROL XL PO SCH ×2 (14:15→14:27)
[2018-08-16] MEDS: PROCARDIA XL PO SCH ×2 (14:15→14:27)
[2018-08-16] MEDS: COZAAR PO SCH ×2 (14:15→14:27)
[2018-08-16] MEDS: SODIUM CHLORIDE FLUSH SYRINGE 10 ML IV SCH ×2 (14:16→22:13)
[2018-08-16] MEDS: ECOTRIN PO SCH (14:26)
[2018-08-17 07:56] VITALS: BP 112/62
--- NOTE | 2018-08-17 09:06 | Progress Note ---
Assessment and Plan Syncope - recurrent MPI 10/2017 at [facility] - Normal Echo 10/2017 at [facility] - normal LVEF EEG 05/2017 - questionable discharges seen in isolation only a few times on routine EEG VQ scan - negative this admission Paroxysmal atrial fibrillation - new onset initiated on eliquis on Toprol XL for suppression Systemic Hypertension LARY on CPAP therapy at home Continue medial therapy for paroxysmal atrial fibrillation. Subjective Date of service: 08/17/18 Interval history: Patient has no complaints. Stable sinus rhythm on telemetry. Objective Vital Signs Temp Pulse Resp BP Pulse Ox 08/17/18 07:55 98.4 F 18 112/62 08/17/18 04:00 65 08/17/18 03:57 98.3 F 53 L 16 102/49 96 08/16/18 23:14 98.3 F 63 12 112/61 97 08/16/18 22:00 99 08/16/18 19:32 98.7 F 63 16 115/63 99 08/16/18 16:07 98.2 F 55 L 18 134/74 99 08/16/18 14:22 60 100 08/16/18 13:04 100 - Physical Examination General: No Apparent Distress HEENT: Positive: PERRL Cardiac: Positive: Reg Rate and Rhythm Lungs: Positive: Decreased Breath Sounds Neuro: Positive: Grossly Intact Abdomen: Positive: Soft Extremities: Absent: edema
--- NOTE | 2018-08-17 10:17 | Progress Note ---
Assessment and Plan Assessment and plan: Patient is a 62 yo woman with a history of with MO, HTN, OA, Asthma, CVA, DJD, Migraine Headache and LARY on cpap at home (has not seen public works technician for lary) who presented with syncope. She was found to be in new onset afib with RVR. * MPI 10/2017 at [facility] - Normal * Echo 10/2017 at [facility] - normal LVEF * EEG 05/2017 [facility] - questionable discharges seen in isolation only a few times on routine EEG * VQ scan - negative this admission Syncope, most likley autonomic dysfunction, recurrent, workup in progress: questionable abn EEG at [facility], repeat EEG and consulted Neurology Abnormal EEG at [facility] per Business Development Professional, who has signed off New Onset Atrial fibrillation: ECHO reviewed, Start eliquis 5 mg po bid for VTE prophylaxis, Start low dose toprol XL ARF with atn, poa: renal u/s unremarkable, continue IVF Hypertension: low salt LARY: consult Respiratory/cpap, needs to see Insole Buffer outpatient Morbid obesity, BMI 54.9: lifestyle modification full code DVT ppx reviewed MRI brain wo contrast IMPRESSION: 1. A tiny left basal ganglia chronic lacunar i nfarct. 2. No evidence of acute/subacute infarct or hemorrhage. 3. No mass. 4. Moderate bilateral chronic white matter microvascular ischemic change. 5. Mild global cortical atrophy. (Pt does give a history of CVA) EEG still pending but done on 08/16/18, I called stroke/neurology Coordinator Kiara and spoke with her. She is going to try to get Dr. Schrader to read the EEG. History Interval history: Patient was seen and examined. Follow-up on current diagnosis of syncope. No overnight events reported to me. Patient denies any chest pain, shortness breath, nausea/vomiting or severe headaches. Imaging, nursing note, chart, labs and old chart reviewed. Discussed with patient. Hospitalist Physical - Physical exam Narrative exam: Gen: WDWN, NAD, Awake, Alert, Orientated HEENT: NCAT, EOMI, PERRL, OP Clear Neck: supple, no adenopathy, no thyromegaly, no JVD CVS/Heart: irregular irregular, normal S1S2, pulses present bilaterally Chest/Lungs: CTA B, Symmetrical chest expansion, good air entry bilaterally GI/Abdomen: soft, NTND, good bowel sounds, no guarding or rebound /Bladder: no suprapubic tenderness, no CVA or paraspinal tenderness Extermity/Skin: no c/c/e, no obvious rash MSK: FROM x 4 Neuro: CN 2-12 grossly intact, no new focal deficits Psych: calm - Constitutional Vitals: Temp Pulse Resp BP Pulse Ox 98.4 F 65 18 112/62 96 08/17/18 07:55 08/17/18 04:00 08/17/18 07:55 08/17/18 07:55 08/17/18 03:57 General appearance: Present: no acute distress Results - Labs CBC & Chem 7: 08/15/18 05:32 08/15/18 05:27 Labs: Laboratory Last Values WBC 5.8 K/mm3 (4.5-11.0) 08/15/18 05:32 RBC 3.96 M/mm3 (3.65-5.03) 08/15/18 05:32 Hgb 12.1 gm/dl (10.1-14.3) 08/15/18 05:32 Hct 36.4 % (30.3-42.9) 08/15/18 05:32 MCV 92 fl (79-97) 08/15/18 05:32 MCH 31 pg (28-32) 08/15/18 05:32 MCHC 33 % (30-34) 08/15/18 05:32 RDW 15.0 % (13.2-15.2) 08/15/18 05:32 Plt Count 222 K/mm3 (140-440) 08/15/18 05:32 Lymph % (Auto) 25.9 % (13.4-35.0) 08/15/18 05:32 [place] % (Auto) 8.8 % (0.0-7.3) H 08/15/18 05:32 Eos % (Auto) 1.5 % (0.0-4.3) 08/15/18 05:32 Baso % (Auto) 0.7 % (0.0-1.8) 08/15/18 05:32 Lymph # 1.5 K/mm3 (1.2-5.4) 08/15/18 05:32 [place] # 0.5 K/mm3 (0.0-0.8) 08/15/18 05:32 Eos # 0.1 K/mm3 (0.0-0.4) 08/15/18 05:32 Baso # 0.0 K/mm3 (0.0-0.1) 08/15/18 05:32 Seg Neutrophils % 63.1 % (40.0-70.0) 08/15/18 05:32 Seg Neutrophils # 3.7 K/mm3 (1.8-7.7) 08/15/18 05:32 PT 12.9 Sec. (12.2-14.9) 08/14/18 16:24 INR 0.92 (0.87-1.13) 08/14/18 16:24 APTT 26.4 Sec. (24.2-36.6) 08/14/18 16:24 D-Dimer 1573.04 ng/mlDDU (0-234) H 08/14/18 16:24 Sodium 140 mmol/L (137-145) 08/15/18 05:27 Potassium 4.4 mmol/L (3.6-5.0) 08/15/18 05:27 Chloride 104.6 mmol/L (98-107) 08/15/18 05:27 Carbon Dioxide 26 mmol/L (22-30) 08/15/18 05:27 Anion Gap 14 mmol/L 08/15/18 05:27 BUN 23 mg/dL (7-17) H 08/15/18 05:27 Creatinine 0.9 mg/dL (0.7-1.2) 08/15/18 05:27 Estimated GFR > 60 ml/min 08/15/18 05:27 BUN/Creatinine Ratio 26 % 08/15/18 05:27 Glucose 102 mg/dL (65-100) H 08/15/18 05:27 Calcium 9.1 mg/dL (8.4-10.2) 08/15/18 05:27 Total Bilirubin 0.40 mg/dL (0.1-1.2) 08/14/18 16:06 AST 26 units/L (5-40) 08/14/18 16:06 ALT 9 units/L (7-56) 08/14/18 16:06 Alkaline Phosphatase 58 units/L (35-129) 08/14/18 16:06 Troponin T < 0.010 ng/mL (0.00-0.029) 08/14/18 19:58 NT-Pro-B Natriuret Pep 308.3 pg/mL (0-900) 08/14/18 20:05 Total Protein 7.8 g/dL (6.3-8.2) 08/14/18 16:06 Albumin 4.1 g/dL (3.9-5) 08/14/18 16:06 Albumin/Globulin Ratio 1.1 % 08/14/18 16:06 TSH 2.820 mlU/mL (0.270-4.200) 08/14/18 16:06 Free T4 1.16 ng/dL (0.76-1.46) 08/14/18 16:06 Urine Color Straw (Yellow) 08/14/18 17:20 Urine Turbidity Clear (Clear) 08/14/18 17:20 Urine pH 7.0 (5.0-7.0) 08/14/18 17:20 Ur Specific [place] 1.009 (1.003-1.030) 08/14/18 17:20 Urine Protein <15 mg/dl mg/dL (Negative) 08/14/18 17:20 Urine Glucose (UA) Neg mg/dL (Negative) 08/14/18 17:20 Urine Ketones Neg mg/dL (Negative) 08/14/18 17:20 Urine Blood Neg (Negative) 08/14/18 17:20 Urine Nitrite Neg (Negative) 08/14/18 17:20 Urine Bilirubin Neg (Negative) 08/14/18 17:20 Urine Urobilinogen < 2.0 mg/dL (<2.0) 08/14/18 17:20 Ur Leukocyte Esterase Neg (Negative) 08/14/18 17:20 Urine WBC (Auto) 2.0 /HPF (0.0-6.0) 08/14/18 17:20 Urine RBC (Auto) 5.0 /HPF (0.0-6.0) 08/14/18 17:20 U Epithel Cells (Auto) 2.0 /HPF (0-13.0) 08/14/18 17:20 Urine Bacteria (Auto) 1+ /HPF (Negative) 08/14/18 17:20 Urine Mucus Few /HPF 08/14/18 17:20 Urine Creatinine 81.2 mg/dL (0.1-20.0) H 08/15/18 07:40 Urine Sodium 150 mmol/L 08/15/18 07:40 Active Medications - Current Medications Current Medications: Generic Name Dose Route Start Last Admin Trade Name Freq PRN Reason Stop Dose Admin Acetaminophen 650 mg 08/14/18 19:51 08/16/18 03:58 Tylenol PO 650 mg Q4H PRN Administration Pain MILD(1-3)/Fever >100.5/RHODES Albuterol 2.5 mg 08/14/18 19:51 Proventil IH Q4HRT PRN Shortness Of Breath Apixaban 5 mg 08/14/18 22:00 08/16/18 22:13 Eliquis PO 5 mg Q12HR MALCOM Administration Protocol Aspirin 325 mg 08/15/18 10:00 08/16/18 14:26 Ecotrin PO Not Given DAILY MALCOM Atorvastatin Calcium 20 mg 08/15/18 10:00 08/16/18 14:15 Lipitor PO 20 mg DAILY MALCOM Administration Losartan Potassium 50 mg 08/15/18 10:00 08/16/18 14:27 Cozaar PO Not Given DAILY MALCOM Metoprolol Succinate 50 mg 08/15/18 13:00 08/16/18 14:27 Toprol Xl PO Not Given QDAY MALCOM Nifedipine 90 mg 08/15/18 10:00 08/16/18 14:27 Procardia Xl PO Not Given QDAY [facility] Ondansetron HCl 4 mg 08/14/18 19:51 Zofran IV Q8H PRN Nausea And Vomiting Sodium Chloride 10 ml 08/14/18 22:00 08/16/18 22:13 Sodium Chloride Flush Syringe 10 Ml IV 10 ml BID MALCOM Administration Sodium Chloride 10 ml 08/14/18 19:51 Sodium Chloride Flush Syringe 10 Ml IV PRN PRN LINE FLUSH
[2018-08-17] MEDS: ELIQUIS PO SCH (10:59)
[2018-08-17] MEDS: ECOTRIN PO SCH (10:59)
[2018-08-17] MEDS: PROCARDIA XL PO SCH (10:59)
[2018-08-17] MEDS: TOPROL XL PO SCH (10:59)
[2018-08-17] MEDS: COZAAR PO SCH (11:00)
--- NOTE | 2018-08-17 12:01 | Discharge Summary ---
Providers - Providers Date of Admission: 08/14/18 19:51 Date of discharge: 08/17/18 Attending physician: LE SUBRAMANIAN 08/15/18 15:42 Consult to Physician [CONS] Routine Comment: Consulting Provider: CHELE BENZ Physician Instructions: Reason For Exam: abn EEG at [facility], syncope Primary care physician: [facility], Hospitalization Condition: Stable Hospital course: Patient is a 62 yo woman with a history of with MO, HTN, OA, Asthma, CVA, DJD, Migraine Headache and LARY on cpap at home (has not seen heritage consultant for lary) who presented with syncope. She was found to be in new onset afib with RVR. * MPI 10/2017 at [facility] - Normal * Echo 10/2017 at [facility] - normal LVEF * EEG 05/2017 [facility] - questionable discharges seen in isolation only a few times on routine EEG * VQ scan - negative this admission Syncope, most likley autonomic dysfunction, recurrent, workup in progress: questionable abn EEG at [facility], repeat EEG and consulted Neurology Abnormal EEG at [facility] per Dynamics Ax Consultant, who has signed off New Onset Atrial fibrillation: ECHO reviewed, Start eliquis 5 mg po bid for VTE prophylaxis, Start low dose toprol XL ARF with atn, poa: renal u/s unremarkable, continue IVF Hypertension: low salt LARY: consult Respiratory/cpap, needs to see Rn Intern outpatient Morbid obesity, BMI 54.9: lifestyle modification full code DVT ppx reviewed MRI brain wo contrast IMPRESSION: 1. A tiny left basal ganglia chronic lacunar infarct. 2. No evidence of acute/subacute infarct or hemorrhage. 3. No mass. 4. Moderate bilateral chronic white matter microvascular ischemic change. 5. Mild global cortical atrophy. (Pt does give a history of CVA) EEG still pending but done on 08/16/18, I called stroke/neurology Coordinator Kiara and spoke with her. She is going to try to get Dr. Schrader to read the EEG. Will discharge home if EEG negative per Neurologist: This is a 62 YO F with a spell in the setting of what is thought to be new onset atrial fibrillation. Has had 4 other spells previously. Seizure is in the differential. Recommend: EEG here, if negative would do ambulatory EEG outpatient, neuro follow up MRI Brain seizure precautions No driving as per [place] law x 6 months discussed with pt at length Continue cardiac work up as you are doing If EEG shows persistant epileptiform discharges start Keppra 500 mg BID Disposition: DC-01 TO HOME OR SELFCARE Time spent for discharge: 32 minutes Core Measure Documentation - Palliative Care Palliative Care/ Comfort Measures: Not Applicable - Core Measures Any of the following diagnoses?: none - VTE Discharge Requirements Deep Vein Thrombosis/Pulmonary Embolism Present on Admission: No Has pt received <5 days of overlap therapy or INR<2.0: No Anticoagulant overlap therapy prescribed at discharge: No Contraindication No Overlap Therapy order at DC: Not Indicated Exam - Physical Exam Narrative exam: Gen: WDWN, NAD, Awake, Alert, Orientated HEENT: NCAT, EOMI, PERRL, OP Clear Neck: supple, no adenopathy, no thyromegaly, no JVD CVS/Heart: irregular irregular, normal S1S2, pulses present bilaterally Chest/Lungs: CTA B, Symmetrical chest expansion, good air entry bilaterally GI/Abdomen: soft, NTND, good bowel sounds, no guarding or rebound /Bladder: no suprapubic tenderness, no CVA or paraspinal tenderness Extermity/Skin: no c/c/e, no obvious rash MSK: FROM x 4 Neuro: CN 2-12 grossly intact, no new focal deficits Psych: calm - Constitutional Vitals: Temp Pulse Resp BP Pulse Ox 98.4 F 79 18 112/62 96 08/17/18 07:55 08/17/18 10:59 08/17/18 07:55 08/17/18 07:55 08/17/18 03:57 Plan Activity: no driving until cleared by PCP, other (no strenous activity, no driving until cleared by PCP) Diet: low salt, diabetic Follow up with: BLAS KENNY MD [Primary Care Provider] - 3-5 Days SINA RIOS MD [Staff Physician] - 7 Days Prescriptions: Apixaban [Eliquis] 5 mg PO Q12HR #60 tablet Metoprolol Xl [Metoprolol SUCCINATE ER TAB] 50 mg PO QDAY #30 tablet NIFEdipine XL [Procardia Xl] 90 mg PO QDAY #30 tablet ALBUTEROL NEB's [Proventil 0.083% NEBS] 2.5 mg IH PRN PRN #30 nebu PRN Reason: Wheezing
--- NOTE | 2018-08-17 13:49 | Progress Note ---
Subjective Date of service: 08/17/18 Principal diagnosis: EEG report Interval history: per request EEG shows mild slowing no seizure activity full report dictated Objective - Vital Sign Vital Signs - 12hr 08/17/18 08/17/18 08/17/18 03:57 04:00 07:55 Temperature 98.3 F 98.4 F Pulse Rate 53 L 65 Respiratory 16 18 Rate Blood Pressure 102/49 112/62 O2 Sat by Pulse 96 Oximetry 08/17/18 08/17/18 08/17/18 10:00 10:59 12:00 Temperature Pulse Rate 79 79 Respiratory Rate Blood Pressure O2 Sat by Pulse 98 Oximetry - Laboratory Findings CBC and BMP: 08/15/18 05:32 08/15/18 05:27 Abnormal Lab Findings: Abnormal Labs 08/14/18 08/14/18 08/14/18 16:06 16:06 16:24 [place] % (Auto) 8.9 H D-Dimer 1573.04 H Potassium 5.3 H BUN 29 H Creatinine 1.4 H Glucose 109 H Urine Creatinine 08/15/18 08/15/18 08/15/18 05:27 05:32 07:40 [place] % (Auto) 8.8 H D-Dimer Potassium BUN 23 H Creatinine Glucose 102 H Urine Creatinine 81.2 H
== END 2018-08-17 15:53 | disposition home or self-care (01) | DRG 308 ==
LOC: ED 14:57 → 4A 19:51
PROVIDERS: ADMIT Internal Medicine; ATTEND Internal Medicine
PROC: 5A09357 Assistance with Respiratory Ventilation, Less than 24 Consecutive Hours, Continuous Positive Airway Pressure (ICD-10-PCS; principal; 2018-08-15)
DX: I48.0 Paroxysmal atrial fibrillation (principal); N17.0 Acute kidney failure with tubular necrosis; R55 Syncope and collapse; I10 Essential (primary) hypertension; J45.909 Unspecified asthma, uncomplicated; G43.909 Migraine, unspecified, not intractable, without status migrainosus; E66.2 Morbid (severe) obesity with alveolar hypoventilation; M19.90 Unspecified osteoarthritis, unspecified site; Z98.51 Tubal ligation status; Z68.43 Body mass index [BMI] 50.0-59.9, adult; Z90.49 Acquired absence of other specified parts of digestive tract
CPT/HCPCS: 36415; 70450; 70553; 71045; 76770; 78582; 80048; 80053; 81001; 82570; 83880; 84300; 84439; 84443; 84484; 85025; 85379; 85610; 85730; 93005; 93010; 93306; 93880; 94660; 95819; G0378; A9270-GY; A9540; A9558; J7030

== ENCOUNTER 2019-04-12 12:02 | Outpatient (CLI) | payer MEDICAID ==
--- NOTE | 2019-04-12 13:12 | XRay Report ---
XR knee 1-2V RT INDICATION / CLINICAL INFORMATION: PAIN IN RIGHT KNEE. COMPARISON: None available. FINDINGS: BONES/JOINT(S): No acute fracture or subluxation. Moderate to advanced tricompartmental DJD, greatest in the medial femorotibial compartment with mild secondary varus angulation. No significant joint ef fusion. SOFT TISSUES: No significant abnormality. ADDITIONAL FINDINGS: None. Signer Name: Jaison Riley MD Signed: 04/12/2019 1:08 PM Workstation Name: [id number]
== END 2019-04-12 12:03 | disposition home or self-care (01) ==
LOC: XRAY 12:02
PROVIDERS: ATTEND Orthopaedic Surgery
DX: M17.11 Unilateral primary osteoarthritis, right knee (principal); M21.161 Varus deformity, not elsewhere classified, right knee

== ENCOUNTER 2019-05-03 15:33 | Outpatient (CLI) | payer MEDICAID ==
--- NOTE | 2019-05-03 16:44 | XRay Report ---
XR hip 2-3V LT INDICATION / CLINICAL INFORMATION: PAIN IN LEFT HIP. COMPARISON: 03/06/2018 FINDINGS: BONES/JOINT(S): Left total hip arthroplasty remains in place without periprosthetic fracture or loose michell. There is no adverse change from the prior exam. There is mild DJD in the right hip joint. There is unchanged chronic deformity in the right pubic bone from previous fractures. SOFT TISSUES: No significant abnormality. ADDITIONAL FINDINGS: None. Signer Name: Jaison Riley MD Signed: 05/03/2019 4:39 PM Workstation Name: [employer]
== END 2019-05-03 15:34 | disposition home or self-care (01) ==
LOC: XRAY 15:33
PROVIDERS: ATTEND Orthopaedic Surgery
DX: M16.11 Unilateral primary osteoarthritis, right hip (principal); Z87.81 Personal history of (healed) traumatic fracture; Z98.890 Other specified postprocedural states

== ENCOUNTER 2019-05-30 05:51 | Inpatient (IN) | payer MEDICAID ==
--- NOTE | 2019-05-20 10:33 | Anesthesia Consultation ---
Anesthesia Consult and Med Hx Date of service: 05/30/19 - Airway Anesthetic Teeth Evaluation: Good, Dentures, Edentulous (Upper) - Pre-Operative Health Status ASA Pre-Surgery Classification: ASA3 Proposed Anesthetic Plan: General (Refuses SAB) Nerve Block: AC - Pulmonary Hx Smoking: No Hx Asthma: Yes (INHALERS PRN, usually with URI) COPD: No Hx Pneumonia: No Hx Sleep Apnea: Yes (DX SLEEP APNEA WITH CPAP USE.) - Cardiovascular System Hx Hypertension: Yes (2004) Hx Coronary Artery Disease: No (Had cardiac w/u last year and is cleared) Hx Heart Attack/AMI: No (States she can walk one block w/o SHAW, CP) Hx Heart Murmur: Yes - Central Nervous System CVA: Yes (MILD CVA 05/2017- NO DEFICITS. Carotid US ok) Hx Back Pain: Yes (DDD. Had AYLIN here approx one year ago) Hx Psychiatric Problems: No - Gastrointestinal Hx Gastroesophageal Reflux Disease: No - Endocrine Hx End Stage Renal Disease: No - Hematic Hx Anemia: Yes Hx Sickle Cell Disease: No - Other Systems Hx Alcohol Use: No Hx Substance Use: No Hx Cancer: Yes Hx Obesity: Yes (Morbid)
[2019-05-20 10:42] LABS: Basophils % (Auto) 0.7 % (0.0-1.8); Eosinophils # (Auto) 0.1 K/mm3 (0.0-0.4); Eosinophils % (Auto) 3.5 % (0.0-4.3); Hematocrit 34.1 % (30.3-42.9); Hemoglobin 11.7 gm/dl (10.1-14.3); Lymphocytes # (Auto) 1.2 K/mm3 (1.2-5.4); Lymphocytes % (Auto) 29.6 % (13.4-35.0); Mean Corpuscular HGB Conc 34 % (30-34); Mean Corpuscular Volume 93 fl (79-97); Monocytes # (Auto) 0.5 K/mm3 (0.0-0.8); Monocytes % (Auto) 11.6 % (0.0-7.3); Platelet Count 212 K/mm3 (140-440); Red Blood Count 3.68 M/mm3 (3.65-5.03); Red Cell Distribution Width 14.3 % (13.2-15.2)
[2019-05-20 15:15] LABS: Albumin 3.9 g/dL (3.9-5); Calcium 9.7 mg/dL (8.4-10.2)
[~2019-05-30 05:51] MED LIST: BUPIVACAINE/PF (0.5%) 5 MG/1 ML 30 ML VIAL INFILTRATI ONE; MORPHINE 10 MG/1 ML INJ IM ONE; SODIUM CHLORIDE 0.9% 100 ML IVPB IV ONE; SODIUM CHLORIDE 0.9% 50 ML VIAL INFILTRATI ONE; SODIUM CHLORIDE 0.9% IRRIG SOLN 2000 ML IR ONE; TRANEXAMIC ACID 1,000 MG/10 ML IV ONE; ceFAZolin/Water 2 GM/20 ML 2 GM/20 ML SYRINGE IV NR
[2019-05-30] MEDS ORDERED: HYDROmorphone 1 MG/1 ML INJ IV PRN (06:45)
[2019-05-30] MEDS ORDERED: ONDANSETRON 4 MG/2 ML INJ IV PRN (06:45)
--- NOTE | 2019-05-30 06:47 | Anesthesia Consultation ---
Anesthesia Consult and Med Hx Date of service: 05/30/19 - Airway Anesthetic Teeth Evaluation: Dentures ROM Head & Neck: Adequate Mental/Hyoid Distance: Adequate Mallampati Class: Class II Intubation Access Assessment: Probably Good - Pulmonary Exam CTA: Yes - Cardiac Exam Cardiac Exam: RRR - Pre-Operative Health Status ASA Pre-Surgery Classification: ASA3 Proposed Anesthetic Plan: General - Pulmonary Hx Smoking: No Hx Asthma: Yes (INHALERS PRN, usually with URI) COPD: No Hx Pneumonia: No Hx Sleep Apnea: Yes (DX SLEEP APNEA WITH CPAP USE.) - Cardiovascular System Hx Hypertension: Yes (2004) Hx Coronary Artery Disease: No (Had cardiac w/u last year and is cleared) Hx Heart Attack/AMI: No (States she can walk one block w/o SHAW, CP) Hx Heart Murmur: Yes - Central Nervous System CVA: Yes (MILD CVA 05/2017- NO DEFICITS. Carotid US ok) Hx Back Pain: Yes (DDD. Had AYLIN here approx one year ago) Hx Psychiatric Problems: No - Gastrointestinal Hx Gastroesophageal Reflux Disease: No - Endocrine Hx End Stage Renal Disease: No - Hematic Hx Anemia: Yes Hx Sickle Cell Disease: No - Other Systems Hx Alcohol Use: No Hx Substance Use: No Hx Cancer: Yes Hx Obesity: Yes (Morbid)
[2019-05-30] MEDS ORDERED: BACTERIOSTATIC SODIUM CHLORIDE 0.9% 30 ML VIAL INFILTRATI ONE (06:56)
[2019-05-30] MEDS: LACTATED RINGERS 1,000 ML IV SCH ×2 (07:00→20:35)
[2019-05-30] MEDS ORDERED: KETOROLAC 30 MG/1 ML INJ ONE ×2 (07:07→12:42)
[2019-05-30] MEDS ORDERED: TRANEXAMIC ACID 1,000 MG/10 ML ONE (07:07)
[2019-05-30] MEDS ORDERED: MORPHINE 10 MG/1 ML INJ ONE (07:07)
[2019-05-30] MEDS ORDERED: BUPIVACAINE/PF (0.5%) 5 MG/1 ML 30 ML VIAL INFILTRATI ONE ×2 (07:07→10:26)
[2019-05-30] MEDS ORDERED: SODIUM CHLORIDE 0.9% 250ML 250 ML ONE (07:08)
[2019-05-30] MEDS ORDERED: SODIUM CHLORIDE 0.9% 100 ML ONE (07:08)
[2019-05-30] MEDS ORDERED: dexAMETHasone 20 MG/5 ML VIAL ONE ×2 (07:22→09:11)
[2019-05-30] MEDS ORDERED: CELECOXIB 200 MG CAP ONE (07:22)
[2019-05-30] MEDS ORDERED: BUPIVACAINE/PF (0.25%) 2.5 MG/ML 30 ML VIAL INFILTRATI ONE (07:22)
[2019-05-30] MEDS ORDERED: ACETAMINOPHEN 500 MG TAB ONE (07:22)
[2019-05-30] MEDS ORDERED: GABAPENTIN 300 MG CAP ONE (07:22)
[2019-05-30 07:23] LABS: INR 0.96 (0.87-1.13); Partial Thromboplastin Time 29.2 Sec. (24.2-36.6)
[2019-05-30] MEDS ORDERED: DEXMEDETOMIDINE 200 MCG/2 ML VIAL IV ONE (07:23)
[2019-05-30] MEDS ORDERED: MIDAZOLAM 2 MG/2 ML INJ ONE (07:23)
[2019-05-30] MEDS ORDERED: HYDROmorphone 1 MG/1 ML INJ ONE (07:39)
[2019-05-30] MEDS ORDERED: propofoL 200 MG/20 ML VIAL IV ONE (07:39)
[2019-05-30] MEDS ORDERED: LIDOCAINE MPF (2%) 20 MG/1 ML VIAL 5 ML ONE (07:39)
[2019-05-30] MEDS ORDERED: CELECOXIB 200 MG CAP PO NR (08:00)
[2019-05-30] MEDS ORDERED: GABAPENTIN 300 MG CAP PO NR (08:00)
[2019-05-30] MEDS ORDERED: ACETAMINOPHEN 500 MG TAB PO SCH (08:30)
[2019-05-30] MEDS ORDERED: ePHEDrine SULFATE 50 MG/1 ML INJ ONE (08:51)
[2019-05-30] MEDS ORDERED: SODIUM CHLORIDE P/F VIAL 10 ML 10 ML ONE (08:52)
[2019-05-30] MEDS ORDERED: TRANEXAMIC ACID 1,000 MG/10 ML IV ONE (09:00)
[2019-05-30] MEDS ORDERED: SODIUM CHLORIDE 0.9% 100 ML IVPB IV ONE (09:00)
[2019-05-30] MEDS ORDERED: ONDANSETRON 4 MG/2 ML INJ ONE (09:12)
[2019-05-30] MEDS ORDERED: WATER FOR IRRIG STERILE 1,500 ML BOTTLE IR ONE (09:47)
[2019-05-30] MEDS ORDERED: SODIUM CHLORIDE 0.9% IRRIG SOLN 2000 ML IR ONE (10:05)
[2019-05-30] MEDS ORDERED: SODIUM CHLORIDE 0.9% 50 ML VIAL INFILTRATI ONE (10:26)
[2019-05-30] MEDS ORDERED: MORPHINE 10 MG/1 ML INJ IM ONE (10:26)
[2019-05-30] MEDS ORDERED: GLYCOPYRROLATE 0.4 MG/2 ML INJ ONE (10:34)
[2019-05-30] MEDS ORDERED: NEOSTIGMINE 10MG/10 ML INJ MDV ONE (10:34)
[2019-05-30] MEDS ORDERED: LACTATED RINGERS 1,000 ML ONE ×2 (10:51→13:31)
[2019-05-30] MEDS ORDERED: HYDROcodone/ACETAMINOPHEN 5-325 MG TAB PO PRN (10:51)
[2019-05-30] MEDS ORDERED: IBUPROFEN 600 MG TAB PO PRN (10:51)
--- NOTE | 2019-05-30 11:12 | Procedure Note ---
Date of procedure: 05/30/19 Pre-op diagnosis: Severe arthritis right knee Post-op diagnosis: same Procedure: Right total knee replacement Procedure The patient was brought to the OR after being given a obturator nerve block and preoperative holding she was placed on the OR table supine position following induction with MAC anesthesia the patient is right lower extremity was prepped and draped in the usual sterile manner. A timeout procedure was done to identify the patient in the correct operative site. The leg was flexed to 100 degrees for about 3-5 minutes. A midline incision was made over the patella was taken down distally towards the tibial tubercle next the medial retinaculum was incised and the patella was inverted examination of the patient's knee joint revealed typical osteoarthritic changes with large bone spurs noted primarily in the medial compartment both the femoral and tibial's articular surfaces exhibited bare bone and large peripheral osteophytes next a large drill bit was used to enter the medullary canal this was followed by placement of the distal femoral cutting Rober the distal femur was resected approximately 8-9 mm of bone was removed at this time. Attention was turned to the patient's proximal tibia using a external alignme guide the bone was cut using the medial surface as the low point of care was taken to protect the medial collateral ligaments the tibial articular surface was 7-sized A3 a #4 tibial based ray was selected this was followed by placement of the fixation hole or keel into the proximal tibial artery medullary canal. Attention was turned to the distal femur and using a 4 and 1 cutting block a +4 component was selected AP anterior and posterior as well as Buckley cuts were made a +4 tibial ostomy femoral component was placed and the knee was then taken to a range of motion she appeared to have stability in both the flexion and extension FOLLOWING this the trial components were removed the knee was then copiously irrigated any remaining soft tissue and bony debris were removed at this time next the cement was next and following this the tibial components were inserted beginning with the based ray followed by the polyethylene insert The femoral component was added the excess were removed the knee was held in extension until the cement hardened following hardening of cement the knee was then brought back into of flexion any remaining soft tissue and bony debris were removed at this time. The wound again was irrigated and was closed in a standard routine fashion. Dressings were applied the patient tolerated the procedure there were no complications she was then taken to post anesthesia recovery Anesthesia: MAC, regional Surgeon: JEFFREY BARRETT Mill Laborer: CHICO WU Estimated blood loss: 50-100ml Pathology: list (Bone and cartilage right femur and tibia) Specimen disposition: to lab Condition: stable Disposition: PACU
[2019-05-30] MEDS ORDERED: MEPERIDINE 25 MG/1 ML INJ ONE (12:03)
[2019-05-30] MEDS ORDERED: MEPERIDINE 25 MG/1 ML INJ IV PRN (12:10)
[2019-05-30] MEDS ORDERED: KETOROLAC 30 MG/1 ML INJ IV ONE (12:38)
[2019-05-30] MEDS ORDERED: ROCURONIUM 50 MG/5 ML INJ IV ONE (13:00)
--- NOTE | 2019-05-30 13:41 | Post Anesthesia Evaluation ---
- Post Anesthesia Evaluation Patient Participated: Yes Airway Patent: Yes Stable Respiratory Function: Yes Nausea/Vomiting: No Temp > 96.8F: Yes Pain Manageable: Yes Adequeate Hydration: Yes Anesthesia Complications: No Block Receding Appropriately: Yes Patient on Ventilator: No
[2019-05-30] MEDS: MORPHINE 4 MG/1 ML INJ IV PRN (15:30)
[2019-05-30] MEDS: ceFAZolin/NS 1 GM/50 ML 1 GM/50 ML BAG IV SCH (20:35)
--- NOTE | 2019-05-31 00:32 | XRay Report ---
RIGHT KNEE 3 VIEWS INDICATION / CLINICAL INFORMATION: Postop evaluation. History of total knee arthroplasty. COMPARISON: Right knee radiographs from 04/12/2019. FINDINGS: BONES and JOINT(S): A total knee arthroplasty appears intact and in good position. No acute osseous a bnormality is seen. SOFT TISSUES: Expected postoperative changes are seen along the knee without an acute abnormality. ADDITIONAL FINDINGS: None. IMPRESSION: Expected postoperative appearance of the right knee. Signer Name: Lele Thompson MD Signed: 05/31/2019 12:27 AM Workstation Name: [id number]
[2019-05-31] MEDS: ceFAZolin/NS 1 GM/50 ML 1 GM/50 ML BAG IV SCH (04:49)
[2019-05-31 07:44] LABS: Hematocrit 29.2 % (30.3-42.9); Hemoglobin 9.7 gm/dl (10.1-14.3)
[2019-05-31] MEDS: LACTATED RINGERS 1,000 ML IV SCH (09:59)
[2019-05-31] MEDS: ENOXAPARIN 40 MG/0.4 ML INJ SUB-Q SCH (09:59)
[2019-05-31] MEDS: MORPHINE 4 MG/1 ML INJ IV PRN (13:36)
[2019-05-31] MEDS ORDERED: oxyCODONE /ACETAMINOPHEN 5-325MG TAB PO PRN ×3 (14:19→21:41)
--- NOTE | 2019-05-31 14:22 | Progress Note ---
Assessment and Plan s/p right TKR doing well continue PT and rehab hopefully dc to home this wkend Subjective Date of service: 05/31/19 Interval history: c/o right knee pain, started PT today... Objective Vital signs: Vital Signs - 12hr 05/31/19 05/31/19 05/31/19 04:23 07:45 12:53 Temperature 97.8 F 97.7 F Pulse Rate 55 L 50 L Respiratory 16 18 Rate Blood Pressure 128/63 121/64 O2 Sat by Pulse 100 100 100 Oximetry Incision: healing, clean and dry Weight bearing status: as tolerated - Labs CBC & BMP: 05/31/19 06:34 05/20/19 10:00 Labs: Abnormal lab results 05/31/19 Range/Units 06:34 Hgb 9.7 L (10.1-14.3) gm/dl Hct 29.2 L (30.3-42.9) %
[2019-05-31] MEDS: oxyCODONE 5 MG TAB PO PRN (20:56)
[2019-05-31] MEDS ORDERED: ALBUTEROL 2.5 MG/3 ML NEBU IH PRN (21:02)
[2019-06-01] MEDS: LACTATED RINGERS 1,000 ML IV SCH (06:12)
[2019-06-01] MEDS: SPIRONOLACTONE 25 MG TAB PO SCH ×2 (06:14→10:40)
[2019-06-01] MEDS: LISINOPRIL 40 MG TAB PO SCH ×2 (06:14→09:43)
[2019-06-01] MEDS: METOPROLOL SUCCINATE XL 50 MG TAB PO SCH ×2 (06:15→10:39)
[2019-06-01] MEDS: CHLORTHALIDONE 25 MG TAB PO SCH ×2 (06:15→10:40)
[2019-06-01] MEDS: NIFEdipine XL 90 MG TAB PO SCH ×2 (06:15→10:41)
--- NOTE | 2019-06-01 06:37 | Consultation ---
History of Present Illness - Reason for Consult Consult date: 05/31/19 Medical anagement Requesting physician: JEFFREY BARRETT - History of Present Illness S/p Rt TKA--post op patient doing well. Past History Past Medical History: hypertension, hyperlipidemia Past Surgical History: total knee replacement (Rt) Social history: lives with family, full code. denies: smoking, alcohol abuse Family history: hypertension Medications and Allergies Allergies Allergy/AdvReac Type Severity Reaction Status Date / Time iodine Allergy Severe Rash Verified 05/16/19 10:45 ibuprofen [From Motrin] AdvReac Severe Rash Verified 05/16/19 10:45 Home Medications Medication Instructions Recorded Confirmed Last Taken Type ALBUTEROL NEB's [Proventil 0.083% 2.5 mg IH PRN PRN #30 nebu 08/17/18 05/16/19 Unknown Rx NEBS] Apixaban [Eliquis] 5 mg PO Q12HR #60 tablet 08/17/18 05/30/19 05/25/19 07:00 Rx Metoprolol Xl [Metoprolol 50 mg PO QDAY #30 tablet 08/17/18 05/30/19 05/29/19 07:00 Rx SUCCINATE ER TAB] NIFEdipine XL [Procardia Xl] 90 mg PO QDAY #30 tablet 08/17/18 05/30/19 05/29/19 07:00 Rx Albuterol INH(or & Nicu Only) 2 puff INHALATION PRN 05/15/19 05/15/19 Unknown History Lisinopril 40 mg PO DAILY 05/15/19 05/30/19 05/29/19 07:00 History Atorvastatin [Lipitor Tab] 40 mg PO QHS 05/16/19 05/30/19 05/29/19 07:00 History Chlorthalidone [Thalitone] 25 mg PO QDAY 05/16/19 05/30/19 05/29/19 07:00 History Spironolactone [Aldactone] 25 mg PO QDAY 05/16/19 05/30/19 05/29/19 07:00 History oxyCODONE /ACETAMINOPHEN [Percocet 1 tab PO Q6HR PRN 05/16/19 05/30/19 05/29/19 22:00 History 5/325] Active Meds: Active Medications Albuterol (Proventil) 2.5 mg IH PRN PRN PRN Reason: Wheezing Atorvastatin Calcium (Lipitor) 40 mg PO QHS [facility]END[facility] S[facility] TO [facility] Last Admin: 06/01/19 06:15 Dose: Not Given Documented by: Chlorthalidone (Thalitone) 25 mg PO QDAY [facility]END[facility] TO [facility] Last Admin: 06/01/19 06:15 Dose: Not Given Documented by: Enoxaparin Sodium (Enoxaparin) 40 mg SUB-Q QDAY [facility]END[facility] S[facility] TO [facility] Last Admin: 05/31/19 09:59 Dose: 40 mg Documented by: Lactated Ringer's (Lactated Ringers) 1,000 mls @ 100 mls/hr IV DIRECT PENDING SALE TO [facility] Last Admin: 06/01/19 06:12 Dose: 100 mls/hr Documented by: Ibuprofen (Ibuprofen) 600 mg PO Q6H PRN PRN Reason: Pain, Mild (1-3) Lisinopril (Zestril) 40 mg PO DAILY [facility] Last Admin: 06/01/19 06:14 Dose: Not Given Documented by: Meperidine HCl (Demerol) 12.5 mg IV ONCE PRN PRN Reason: Shivering Last Admin: 05/30/19 12:00 Dose: 12.5 mg Documented by: Metoprolol Succinate (Metoprolol Xl) 50 mg PO QDAY [facility] Last Admin: 06/01/19 06:15 Dose: Not Given Documented by: Morphine Sulfate (Morphine) 4 mg IV Q4H PRN PRN Reason: Pain , Severe (7-10) Last Admin: 05/31/19 13:36 Dose: 4 mg Documented by: Nifedipine (Procardia Xl) 90 mg PO QDAY [facility] Last Admin: 06/01/19 06:15 Dose: Not Given Documented by: Oxycodone HCl (Roxicodone) 10 mg PO Q6H PRN PRN Reason: Pain, Moderate (4-6) Last Admin: 05/31/19 20:56 Dose: 10 mg Documented by: Oxycodone/Acetaminophen (Percocet 5/325) 1 tab PO Q6HR PRN PRN Reason: PAIN Spironolactone (Aldactone) 25 mg PO QDAY [facility]END[facility] Last Admin: 06/01/19 06:14 Dose: Not Given Documented by: Review of Systems All systems: negative Musculoskeletal: low back pain, limitation of motion (Rt Knee) Exam - Constitutional Vitals: Temp Pulse Resp BP Pulse Ox 99.2 F 73 20 128/64 98 06/01/19 03:50 06/01/19 04:08 06/01/19 03:50 06/01/19 03:50 06/01/19 04:00 General appearance: Present: no acute distress, well-nourished - EENT Eyes: Present: PERRL ENT: hearing intact, clear oral mucosa - Neck Neck: Present: supple, normal ROM - Respiratory Respiratory effort: normal Respiratory: bilateral: CTA - Cardiovascular Heart rate: 76 Heart Sounds: Present: S1 & S2. Absent: rub, click - Extremities Extremities: no ischemia, pulses intact, pulses symmetrical, No edema, abnormal (Dereased ROM on Rt knee) Peripheral Pulses: within normal limits - Abdominal General gastrointestinal: Present: soft, non-tender, non-distended, normal bowel sounds Female genitourinary: Present: normal - Integumentary Integumentary: Present: clear, warm, dry - Musculoskeletal Musculoskeletal: gait normal, strength equal bilaterally - Psychiatric Psychiatric: appropriate mood/affect, intact judgment & insight - Neurologic Neurologic: CNII-XII intact, moves all extremities Results - Labs CBC & Chem 7: 05/31/19 06:34 05/20/19 10:00 Labs: Abnormal lab results 05/31/19 Range/Units 06:34 Hgb 9.7 L (10.1-14.3) gm/dl Hct 29.2 L (30.3-42.9) % Assessment and Plan - Patient Problems (1) S/P total knee arthroplasty Current Visit: Yes Status: Acute Qualifiers: Laterality: right Qualified Code(s): Z96.651 - Presence of right artificial knee joint Plan to address problem: Post op doing well (2) BK (acute kidney injury) Current Visit: Yes Status: Acute Plan to address problem: IV fluids for now Recheck creatinine (3) HTN (hypertension) Current Visit: No Status: Chronic Qualifiers: Hypertension type: essential hypertension Qualified Code(s): I10 - Essential (primary) hypertension Plan to address problem: Cont antihypertensives (4) Obesity hypoventilation syndrome Current Visit: No Status: Acute Plan to address problem: CPAP at hs (5) HLD (hyperlipidemia) Current Visit: No Status: Chronic Qualifiers: Hyperlipidemia type: mixed hyperlipidemia Qualified Code(s): E78.2 - Mixed hyperlipidemia Plan to address problem: COnt statins (6) A-fib Current Visit: Yes Status: Chronic Qualifiers: Atrial fibrillation type: paroxysmal Qualified Code(s): I48.0 - Paroxysmal atrial fibrillation Plan to address problem: Eliquis to be resumed after discharge (7) DVT prophylaxis Current Visit: No Status: Acute Plan to address problem: On scd's and GI prophylaxis
--- NOTE | 2019-06-01 06:58 | Progress Note ---
Assessment and Plan - Patient Problems (1) S/P total knee arthroplasty Current Visit: Yes Status: Acute Qualifiers: Laterality: right Qualified Code(s): Z96.651 - Presence of right artificial knee joint Plan to address problem: Post op doing well (2) BK (acute kidney injury) Current Visit: Yes Status: Acute Plan to address problem: IV fluids for now Recheck creatinine (3) HTN (hypertension) Current Visit: No Status: Chronic Qualifiers: Hypertension type: essential hypertension Qualified Code(s): I10 - Essential (primary) hypertension Plan to address problem: Cont antihypertensives (4) Obesity hypoventilation syndrome Current Visit: No Status: Acute Plan to address problem: CPAP at hs (5) HLD (hyperlipidemia) Current Visit: No Status: Chronic Qualifiers: Hyperlipidemia type: mixed hyperlipidemia Qualified Code(s): E78.2 - Mixed hyperlipidemia Plan to address problem: COnt statins (6) A-fib Current Visit: Yes Status: Chronic Qualifiers: Atrial fibrillation type: paroxysmal Qualified Code(s): I48.0 - Paroxysmal atrial fibrillation Plan to address problem: Eliquis to be resumed after discharge (7) DVT prophylaxis Current Visit: No Status: Acute Plan to address problem: On scd's and GI prophylaxis Subjective Date of service: 06/01/19 Principal diagnosis: S/p right TKA Interval history: Postop doing well Objective - Constitutional Vitals: Vital Signs - 12hr 05/31/19 05/31/19 05/31/19 19:47 19:51 21:30 Temperature 98.7 F 98.7 F Pulse Rate 96 H Respiratory 20 20 Rate Blood Pressure 124/52 130/79 O2 Sat by Pulse 96 Oximetry 06/01/19 06/01/19 06/01/19 03:50 04:00 04:08 Temperature 99.2 F Pulse Rate 73 Respiratory 20 Rate Blood Pressure 128/64 O2 Sat by Pulse 98 Oximetry General appearance: Present: no acute distress, well-nourished - EENT Eyes: PERRL, EOM intact ENT: hearing intact, clear oral mucosa Ears: bilateral: normal - Neck Neck: supple, normal ROM - Respiratory Respiratory effort: normal Respiratory: bilateral: CTA - Breasts Breasts: normal - Cardiovascular Rhythm: regular Heart Sounds: Present: S1 & S2. Absent: gallop, rub Extremities: pulses intact, No edema, normal color, Full ROM - Gastrointestinal General gastrointestinal: Present: soft, non-tender, non-distended, normal bowel sounds - Genitourinary Female genitourinary: normal - Integumentary Integumentary: clear, warm, dry - Musculoskeletal Musculoskeletal: 1, strength equal bilaterally - Neurologic Neurologic: moves all extremities - Psychiatric Psychiatric: memory intact, appropriate mood/affect, intact judgment & insight - Labs CBC & Chem 7: 06/01/19 08:06 06/01/19 08:06 Labs: Abnormal lab results 05/31/19 Range/Units 06:34 Hgb 9.7 L (10.1-14.3) gm/dl Hct 29.2 L (30.3-42.9) %
[2019-06-01] MEDS ORDERED: SODIUM CHLORIDE 0.9% 1000 ML 1,000 ML IV SCH (07:00)
[2019-06-01 08:58] LABS: Basophils % (Auto) 0.3 % (0.0-1.8); Eosinophils # (Auto) 0.1 K/mm3 (0.0-0.4); Eosinophils % (Auto) 1.2 % (0.0-4.3); Hematocrit 24.5 % (30.3-42.9); Hemoglobin 8.4 gm/dl (10.1-14.3); Lymphocytes # (Auto) 0.8 K/mm3 (1.2-5.4); Lymphocytes % (Auto) 14.6 % (13.4-35.0); Mean Corpuscular HGB Conc 34 % (30-34); Mean Corpuscular Volume 92 fl (79-97); Monocytes # (Auto) 0.6 K/mm3 (0.0-0.8); Monocytes % (Auto) 11.3 % (0.0-7.3); Red Blood Count 2.66 M/mm3 (3.65-5.03); Red Cell Distribution Width 13.8 % (13.2-15.2)
[2019-06-01 09:09] LABS: Platelet Count 152 K/mm3 (140-440)
[2019-06-01 09:44] LABS: BUN/Creatinine Ratio 26; Blood Urea Nitrogen 23 mg/dL (7-17); Calcium 8.6 mg/dL (8.4-10.2); Hemolysis Index 9
[2019-06-01] MEDS: oxyCODONE 5 MG TAB PO PRN ×2 (10:37→17:44)
[2019-06-01] MEDS: ENOXAPARIN 40 MG/0.4 ML INJ SUB-Q SCH (10:39)
[2019-06-02] MEDS: ENOXAPARIN 40 MG/0.4 ML INJ SUB-Q SCH ×2 (08:49→10:00)
[2019-06-02] MEDS: oxyCODONE 5 MG TAB PO PRN ×2 (10:20→16:39)
--- NOTE | 2019-06-02 12:55 | Progress Note ---
Assessment and Plan - Patient Problems (1) S/P total knee arthroplasty Current Visit: Yes Status: Acute Qualifiers: Laterality: right Qualified Code(s): Z96.651 - Presence of right artificial knee joint Plan to address problem: Post op doing well Continue PT and OT (2) BK (acute kidney injury) Current Visit: Yes Status: Acute Plan to address problem: IV fluids for now Recheck creatinine --0improved (3) HTN (hypertension) Current Visit: No Status: Chronic Qualifiers: Hypertension type: essential hypertension Qualified Code(s): I10 - Essential (primary) hypertension Plan to address problem: Cont antihypertensives (4) Obesity hypoventilation syndrome Current Visit: No Status: Acute Plan to address problem: CPAP at hs (5) HLD (hyperlipidemia) Current Visit: No Status: Chronic Qualifiers: Hyperlipidemia type: mixed hyperlipidemia Qualified Code(s): E78.2 - Mixed hyperlipidemia Plan to address problem: COnt statins (6) A-fib Current Visit: Yes Status: Chronic Qualifiers: Atrial fibrillation type: paroxysmal Qualified Code(s): I48.0 - Paroxysmal atrial fibrillation Plan to address problem: Eliquis to be resumed after discharge (7) DVT prophylaxis Current Visit: No Status: Acute Plan to address problem: On scd's and GI prophylaxis Subjective Date of service: 06/02/19 Principal diagnosis: S/p right TKA Interval history: Postop doing well No complaints S/p right TKA Patient is pleasant and smiling Objective - Constitutional Vitals: Vital Signs - 12hr 06/02/19 06/02/19 06/02/19 04:17 06:55 07:00 Temperature 100.2 F H 99.0 F Pulse Rate 68 68 Respiratory 18 20 18 Rate Blood Pressure 121/55 117/62 O2 Sat by Pulse 99 97 Oximetry 06/02/19 06/02/19 10:00 11:19 Temperature 98.0 F Pulse Rate 79 Respiratory 20 Rate Blood Pressure 109/46 O2 Sat by Pulse 96 92 Oximetry General appearance: Present: no acute distress, well-nourished - EENT Eyes: PERRL, EOM intact ENT: hearing intact, clear oral mucosa Ears: bilateral: normal - Neck Neck: supple, normal ROM - Respiratory Respiratory effort: normal Respiratory: bilateral: CTA - Breasts Breasts: normal - Cardiovascular Heart rate: 78 Rhythm: regular Heart Sounds: Present: S1 & S2. Absent: gallop, rub Extremities: pulses intact, No edema, normal color, abnormal (Decreased range of motion on right lower extremity at the knee joint secondary to surgery) - Gastrointestinal General gastrointestinal: Present: soft, non-tender, non-distended, normal bowel sounds - Genitourinary Female genitourinary: normal - Integumentary Integumentary: clear, warm, dry - Musculoskeletal Musculoskeletal: 1, strength equal bilaterally - Neurologic Neurologic: moves all extremities - Psychiatric Psychiatric: memory intact, appropriate mood/affect, intact judgment & insight - Labs CBC & Chem 7: 06/01/19 08:06 06/01/19 08:06 Labs: Abnormal lab results 06/01/19 Range/Units 12:02 POC Glucose 123 H (70-105)
[2019-06-02] MEDS: SPIRONOLACTONE 25 MG TAB PO SCH (13:49)
[2019-06-02] MEDS: METOPROLOL SUCCINATE XL 50 MG TAB PO SCH (13:50)
[2019-06-02] MEDS: NIFEdipine XL 90 MG TAB PO SCH (13:50)
[2019-06-02] MEDS: LISINOPRIL 40 MG TAB PO SCH (13:50)
[2019-06-02] MEDS: CHLORTHALIDONE 25 MG TAB PO SCH (13:51)
--- NOTE | 2019-06-03 08:39 | Progress Note ---
Assessment and Plan Assessment and plan: (1) S/P total knee arthroplasty Current Visit: Yes Status: Acute Qualifiers: Laterality: right Qualified Code(s): Z96.651 - Presence of right artificial knee joint Plan to address problem: Post op doing well Continue PT and OT Discharge ok with IM Anticoagulation per Surgery (2) BK (acute kidney injury) SECONDARY TO VASOMOTOR NEPHROPATHY Current Visit: Yes Status: Acute Plan to address problem: IV fluids for now Recheck creatinine --0improved (3) HTN (hypertension) Current Visit: No Status: Chronic Qualifiers: Hypertension type: essential hypertension Qualified Code(s): I10 - Essential (primary) hypertension Plan to address problem: Cont antihypertensives (4) Obesity hypoventilation syndrome Current Visit: No Status: Acute Plan to address problem: CPAP at hs (5) HLD (hyperlipidemia) Current Visit: No Status: Chronic Qualifiers: Hyperlipidemia type: mixed hyperlipidemia Qualified Code(s): E78.2 - Mixed hyperlipidemia Plan to address problem: COnt statins (6) A-fib Current Visit: Yes Status: Chronic Qualifiers: Atrial fibrillation type: paroxysmal Qualified Code(s): I48.0 - Paroxysmal atrial fibrillation Plan to address problem: Eliquis to be resumed after discharge (7) DVT prophylaxis Current Visit: No Status: Acute Plan to address problem: On scd's and GI prophylaxis History Interval history: Patient seen and examined, walked with Physical therapy, no new complaints Hospitalist Physical - Physical exam Narrative exam: General appearance: Present: no acute distress, well-nourished, moribid obesity - EENT Eyes: PERRL, EOM intact ENT: hearing intact, clear oral mucosa Ears: bilateral: normal - Neck Neck: supple, normal ROM - Respiratory Respiratory effort: normal Respiratory: bilateral: CTA - Breasts Breasts: normal - Cardiovascular Heart rate: 78 Rhythm: regular Heart Sounds: Present: S1 & S2. Absent: gallop, rub Extremities: pulses intact, No edema, normal color, abnormal Brace in place (Decreased range of motion on right lower extremity at the knee joint secondary to surgery) - Gastrointestinal General gastrointestinal: Present: soft, non-tender, non-distended, normal bowel sounds - Genitourinary Female genitourinary: normal - Integumentary Integumentary: clear, warm, dry - Musculoskeletal Musculoskeletal: 1, strength equal bilaterally - Neurologic Neurologic: moves all extremities - Psychiatric Psychiatric: memory intact, appropriate mood/affect, intact judgment & insight - Constitutional Vitals: Temp Pulse Resp BP Pulse Ox 98.9 F 85 20 146/52 93 06/03/19 07:17 06/03/19 07:17 06/03/19 07:17 06/03/19 07:17 06/03/19 07:17 General appearance: Present: no acute distress, well-nourished Results - Labs CBC & Chem 7: 06/01/19 08:06 06/01/19 08:06 Labs: Laboratory Last Values WBC 5.4 K/mm3 (4.5-11.0) 06/01/19 08:06 RBC 2.66 M/mm3 (3.65-5.03) L 06/01/19 08:06 Hgb 8.4 gm/dl (10.1-14.3) L 06/01/19 08:06 Hct 24.5 % (30.3-42.9) L 06/01/19 08:06 MCV 92 fl (79-97) 06/01/19 08:06 MCH 31 pg (28-32) 06/01/19 08:06 MCHC 34 % (30-34) 06/01/19 08:06 RDW 13.8 % (13.2-15.2) 06/01/19 08:06 Plt Count 152 K/mm3 (140-440) 06/01/19 08:06 Lymph % (Auto) 14.6 % (13.4-35.0) 06/01/19 08:06 Major % (Auto) 11.3 % (0.0-7.3) H 06/01/19 08:06 Eos % (Auto) 1.2 % (0.0-4.3) 06/01/19 08:06 Baso % (Auto) 0.3 % (0.0-1.8) 06/01/19 08:06 Lymph # 0.8 K/mm3 (1.2-5.4) L 06/01/19 08:06 Major # 0.6 K/mm3 (0.0-0.8) 06/01/19 08:06 Eos # 0.1 K/mm3 (0.0-0.4) 06/01/19 08:06 Baso # 0.0 K/mm3 (0.0-0.1) 06/01/19 08:06 Seg Neutrophils % 72.6 % (40.0-70.0) H 06/01/19 08:06 Seg Neutrophils # 3.9 K/mm3 (1.8-7.7) 06/01/19 08:06 PT 12.9 Sec. (12.2-14.9) 05/30/19 06:55 INR 0.96 (0.87-1.13) 05/30/19 06:55 APTT 29.2 Sec. (24.2-36.6) 05/30/19 06:55 Sodium 141 mmol/L (137-145) 06/01/19 08:06 Potassium 4.6 mmol/L (3.6-5.0) 06/01/19 08:06 Chloride 106.2 mmol/L (98-107) 06/01/19 08:06 Carbon Dioxide 23 mmol/L (22-30) 06/01/19 08:06 Anion Gap 16 mmol/L 06/01/19 08:06 BUN 23 mg/dL (7-17) H 06/01/19 08:06 Creatinine 0.9 mg/dL (0.7-1.2) 06/01/19 08:06 Estimated GFR > 60 ml/min 06/01/19 08:06 BUN/Creatinine Ratio 26 % 06/01/19 08:06 Glucose 101 mg/dL (65-100) H 06/01/19 08:06 POC Glucose 123 (70-105) H 06/01/19 12:02 Calcium 8.6 mg/dL (8.4-10.2) 06/01/19 08:06 Total Bilirubin 0.70 mg/dL (0.1-1.2) 05/20/19 10:00 AST 13 units/L (5-40) 05/20/19 10:00 ALT 6 units/L (7-56) L 05/20/19 10:00 Alkaline Phosphatase 58 units/L (35-129) 05/20/19 10:00 Total Protein 7.5 g/dL (6.3-8.2) 05/20/19 10:00 Albumin 3.9 g/dL (3.9-5) 05/20/19 10:00 Albumin/Globulin Ratio 1.1 % 05/20/19 10:00 Blood Type O POSITIVE 05/30/19 06:55 Antibody Screen Negative 05/30/19 06:55 Active Medications - Current Medications Current Medications: Generic Name Dose Route Start Last Admin Trade Name Freq PRN Reason Stop Dose Admin Albuterol 2.5 mg 05/31/19 21:02 Proventil IH PRN PRN Wheezing Atorvastatin Calcium 40 mg 05/31/19 22:00 06/02/19 22:22 Lipitor PO 40 mg QHS [facility] Administration Chlorthalidone 25 mg 05/31/19 22:00 06/02/19 13:51 Thalitone PO Not Given QDAY [facility] Enoxaparin Sodium 40 mg 05/31/19 10:00 06/02/19 10:00 Enoxaparin SUB-Q Not Given QDAY [facility] Lactated Ringer's 1,000 mls @ 100 mls/hr 05/30/19 07:00 06/01/19 06:12 Lactated Ringers IV 100 mls/hr DIRECT MALCOM Administration Sodium Chloride 1,000 mls @ 75 mls/hr 06/01/19 07:00 06/02/19 08:47 Nacl 0.9% 1000 Ml IV 75 mls/hr DIRECT MALCOM Administration Lisinopril 40 mg 05/31/19 21:15 06/02/19 13:50 Zestril PO Not Given DAILY [facility] Metoprolol Succinate 50 mg 05/31/19 22:00 06/02/19 13:50 Metoprolol Xl PO Not Given QDAY [facility] Morphine Sulfate 4 mg 05/30/19 10:51 05/31/19 13:36 Morphine IV 4 mg Q4H PRN Administration Pain , Severe (7-10) Nifedipine 90 mg 05/31/19 22:00 06/02/19 13:50 Procardia Xl PO Not Given QDAY [facility] Oxycodone HCl 10 mg 05/31/19 18:32 06/02/19 16:39 Roxicodone PO 10 mg Q6H PRN Administration Pain, SEVERE (7-10) Oxycodone/Acetaminophen 1 tab 05/31/19 21:41 06/01/19 22:32 Percocet 5/325 PO 1 tab Q6H PRN Administration PAIN, MODERATE 4-6 Spironolactone 25 mg 05/31/19 22:00 06/02/19 13:49 Aldactone PO Not Given QDAY [facility]
[2019-06-03] MEDS: oxyCODONE 5 MG TAB PO PRN (08:57)
[2019-06-03] MEDS: ENOXAPARIN 40 MG/0.4 ML INJ SUB-Q SCH ×2 (08:58→10:00)
[2019-06-03] MEDS: SPIRONOLACTONE 25 MG TAB PO SCH (10:00)
[2019-06-03] MEDS: CHLORTHALIDONE 25 MG TAB PO SCH (10:00)
[2019-06-03] MEDS: LISINOPRIL 40 MG TAB PO SCH (10:00)
[2019-06-03] MEDS: METOPROLOL SUCCINATE XL 50 MG TAB PO SCH (10:00)
[2019-06-03] MEDS: NIFEdipine XL 90 MG TAB PO SCH (10:00)
--- NOTE | 2019-06-03 12:57 | Discharge Summary ---
Providers - Providers Date of Admission: 05/30/19 05:51 Date of discharge: 06/03/19 Attending physician: JEFFREY BARRETT MD 05/30/19 10:59 Physical Therapy Evaluation and Treat [CONS] Routine Comment: Reason For Exam: Postop evaluation Weight bearing status?: Full wt bearing Assistive devices?: Yes If so list: Walker 05/31/19 14:17 Consult to Physician [CONS] Routine Comment: Consulting Provider: YONNY CIFUENTES Physician Instructions: Reason For Exam: medical managment/reconcile home meds 05/31/19 14:22 Consult to Physician [CONS] Routine Comment: Consulting Provider: DONTE ROSALES Physician Instructions: help with medical issues Reason For Exam: medical management Primary care physician: [facility] Hospitalization Reason for admission: Severe arthritis right knee Condition: Stable Procedures: Right total knee replacement Hospital course: 63-year-old female who comes in complaining of severe right knee pain off and on for many years duration patient is tried multiple conservative measures in the past with little to no relief plain x-rays taken preoperatively show severe osteoarthritis. Patient was admitted to the hospital and taken to the operating room where a right total knee replacement was done without complications postoperatively she was seen and evaluated by physical therapy where she was given instructions on gait range of motion exercises in addition patient was also seen by internal medicine for her medical issues. Case management consulted for home health and DME's Disposition: DC-30 STILL A PATIENT Exam - Constitutional Vitals: Temp Pulse Resp BP Pulse Ox 98.9 F 85 20 146/52 93 06/03/19 07:17 06/03/19 07:17 06/03/19 07:17 06/03/19 07:17 06/03/19 07:17 Plan Activity: advance as tolerated Weight Bearing Status: Weight Bear as Tolerated Diet: regular Wound: keep clean and dry Special Instructions: physical therapy Durable Medical Equipment Needed Upon Discharge: Walker-Standard, Bedside Commode Follow up with: PRIMARY CAREMD [Primary Care Provider] - 7 Days
[2019-06-03 13:29] VITALS: BP 145/61
== END 2019-06-03 16:20 | disposition home health service (06) | DRG 469 ==
LOC: 3A 05:51 → 3B-SURG 12:02
PROVIDERS: ADMIT Orthopaedic Surgery; ATTEND Orthopaedic Surgery
PROC: 0SRC0J9 Replacement of Right Knee Joint with Synthetic Substitute, Cemented, Open Approach (ICD-10-PCS; principal; 2019-05-30)
DX: M17.11 Unilateral primary osteoarthritis, right knee (principal); N17.0 Acute kidney failure with tubular necrosis; J45.909 Unspecified asthma, uncomplicated; E66.2 Morbid (severe) obesity with alveolar hypoventilation; I48.0 Paroxysmal atrial fibrillation; E78.2 Mixed hyperlipidemia; I10 Essential (primary) hypertension; Z86.73 Personal history of transient ischemic attack (TIA), and cerebral infarction without residual deficits; Z68.43 Body mass index [BMI] 50.0-59.9, adult; Z82.49 Family history of ischemic heart disease and other diseases of the circulatory system; Z88.8 Allergy status to other drugs, medicaments and biological substances; Z91.041 Radiographic dye allergy status; Z79.51 Long term (current) use of inhaled steroids; Z71.3 Dietary counseling and surveillance
CPT/HCPCS: 36415; 64450; 80048; 80053; 82962; 85014; 85018; 85025; 85610; 85730; 86850; 86900; 86901; 88304; 88309; 88311; G0378; A4217; A9270-GY; C1776; J0690; J1100; J1170; J1650; J1885; J2175; J2250; J2270; J2405; J2704; J2710; J3490; J7030; J7050; J7120

== ENCOUNTER 2019-10-30 14:34 | Outpatient (CLI) | payer MEDICARE, MEDICAID ==
--- NOTE | 2019-10-30 16:56 | XRay Report ---
BILATERAL KNEE 2 VIEW(S), standing INDICATION / CLINICAL INFORMATION: PAINFUL KNEES COMPARISON: Right knee dated 05/30/19 FINDINGS: BONES / JOINT(S): No acute fracture or subluxation. Moderate degenerative arthrosis of the medial com partment of the left knee. Right total knee arthroplasty with no acute abnormality. SOFT TISSUES: No significant abnormality. ADDITIONAL FINDINGS: None. Signer Name: Alan Browning MD Signed: 10/30/2019 4:52 PM Workstation Name: [id number]
== END 2019-10-30 14:35 | disposition home or self-care (01) ==
LOC: XRAY 14:34
PROVIDERS: ATTEND Orthopaedic Surgery
DX: M17.12 Unilateral primary osteoarthritis, left knee (principal); Z96.651 Presence of right artificial knee joint
CPT/HCPCS: 73565

== ENCOUNTER 2020-03-26 05:48 | Day surgery (SDC) | payer MEDICARE, MEDICAID ==
[2020-03-26 07:11] VITALS: BP 136/64
[2020-03-26] MEDS ORDERED: LIDOCAINE (1%) 10 MG/1 ML VIAL 20 ML MDV ONE (07:13)
[2020-03-26] MEDS ORDERED: BUPIVACAINE/PF (0.5%) 5 MG/1 ML 30 ML VIAL INFILTRATI ONE (07:14)
[2020-03-26] MEDS ORDERED: LIDOCAINE (1%) 10 MG/1 ML VIAL 20 ML MDV INFILTRATI ONE (07:48)
[2020-03-26] MEDS ORDERED: BUPIVACAINE/PF (0.5%) 5 MG/1 ML 10 ML VIAL INFILTRATI ONE (07:48)
--- NOTE | 2020-03-26 09:25 | Procedure Note ---
Date of procedure: 03/26/20 Pre-op diagnosis: Left knee pain Post-op diagnosis: same Procedure: [Left] Geniculate Nerve Block under C-arm fluroscopy procedure The patient taken to the operating room where he was place on the table supine with padded triangular pad placed along the potileal fossa. The [left] knee prepped and draped in usual sterile fashion. 22-gauge spinal needle used to locate areas for injection, the medial and lateral supracondylar ridges, 2 cm proximal to the superior pole of the patella as well as the medial border of the proximal tibia. These areas were anesthized using lidocaine 1% followed by placement of spinal needle near the medial, and lateral geniculate nerves. A mixture of marcaine and lidocaine injected into the deeper structures. There were no complications noted and he tolerated well. Anesthesia: local Surgeon: JEFFREY BARRETT Estimated blood loss: minimal Pathology: none Condition: stable Disposition: PACU
--- NOTE | 2020-03-26 10:00 | XRay Report ---
LEFT KNEE 2 VIEWS INDICATION / CLINICAL INFORMATION: LT KNEE PAIN. COMPARISON: None available. FINDINGS: Intraoperative images demonstrate pins projected adjacent to the distal femur bilaterally and proxima l tibia medially. Fluoroscopy time 21 seconds. 2 images. Signer Name: Jorje Alcazar MD Signed: 03/26/2020 9:55 AM Workstation Name: [id number]
== END 2020-03-26 08:28 | disposition home or self-care (01) ==
LOC: OR 05:48
PROVIDERS: ATTEND Orthopaedic Surgery
DX: M25.562 Pain in left knee (principal); I10 Essential (primary) hypertension; E78.5 Hyperlipidemia, unspecified; J45.909 Unspecified asthma, uncomplicated; I48.91 Unspecified atrial fibrillation; E66.2 Morbid (severe) obesity with alveolar hypoventilation; Z96.659 Presence of unspecified artificial knee joint; Z91.041 Radiographic dye allergy status; Z88.8 Allergy status to other drugs, medicaments and biological substances; Z79.899 Other long term (current) drug therapy; Z85.038 Personal history of other malignant neoplasm of large intestine; Z86.010 Personal history of colon polyps; Z68.43 Body mass index [BMI] 50.0-59.9, adult

== ENCOUNTER 2020-10-12 09:18 | Outpatient (CLI) | payer MEDICARE ==
--- NOTE | 2020-10-12 11:53 | Mammography Report ---
DIGITAL SCREENING MAMMOGRAM WITH CAD, 10/12/2020 CLINICAL INFORMATION / INDICATION: Routine screening mammography. TECHNIQUE: Digital bilateral 2D mammography was obtained in the craniocaudal and mediolateral obliqu e projections. This examination was interpreted with the benefit of Computer-Aided Detection analysis . COMPARISON: Prior mammograms 10/10/2019 and 05/07/2013 FINDINGS: Breast Density: There are scattered areas of fibroglandular density. No dominant mass, suspicious calcifications, or architectural distortion in either breast. There has been no significant change compared with the prior examinations. IMPRESSION: No mammographic evidence of malignancy. Follow up recommendation: Routine yearly BI-RADS Category 1: Negative. A "normal" or negative report should not discourage follow up or biopsy of a clinically significant f inding. A written summary of these findings will be mailed to the patient. The patient will be entered into a mammography reporting system which will generate a reminder letter for the patient's next appointmen t at the appropriate interval. The [employer] recommends yearly mammograms starting at age 40 and continuing as l ana as a woman is in good health. Breast MRI is recommended for women with an approximate 20-25% or greater lifetime risk of breast cancer, including women with a strong family history of breast or ova fani cancer or who have been treated for Hodgkin's disease. Signer Name: Rekha Rebolledo MD Signed: 10/12/2020 11:48 AM Workstation Name: [email or web address]
== END 2020-10-12 09:19 | disposition home or self-care (01) ==
LOC: MAMMO 09:18
PROVIDERS: ATTEND Internal Medicine
DX: Z12.31 Encounter for screening mammogram for malignant neoplasm of breast (principal)
CPT/HCPCS: 77067

== ENCOUNTER 2021-01-02 11:20 | Emergency (ER) | payer MEDICARE ==
[2021-01-02 12:47] VITALS: BP 127/62
[2021-01-02] MEDS ORDERED: ACETAMINOPHEN 500 MG TAB PO ONE (12:52)
--- NOTE | 2021-01-02 12:57 | Emergency Department Report ---
- General Chief Complaint: Weakness Stated Complaint: COVID+ SYMPTOMS WORSEN PUI?: Yes Time Seen by Provider: 01/02/21 12:47 Source: patient Mode of arrival: Ambulatory Limitations: No Limitations - History of Present Illness Initial Comments: The patient was evaluated in the emergency department for symptoms described in the history of present illness. He/she was evaluated in the context of the global COVID-19 pandemic, which necessitated consideration that the patient might be at risk for infection with the virus that causes COVID-19. Institutional protocols and algorithms that pertain to the evaluation of patients at risk for COVID-19 are in a state of rapid change based on information released by regulatory bodies including the CDC and federal and state organizations. These policies and algorithms were followed during the patient's care in the emergency department. Please note that these policies, procedures and recommendations changed on a rapid basis. 65-year-old -[place] female presents to the emergency room complaining of headache left ear pain. Patient states she tested positive for Covid on Monday. She seen her primary care provider and he is placed on Zithromax Mucinex and Flonase. Patient currently takes Percocet for chronic pain. She is currently on Eliquis. She denies any chest pain no shortness of breath. She is currently on 4 blood pressure medications with a stable blood pressure of 127/62. Patient has a fever of 100.4. Her oxygenation is 99% on room air with a heart rate of 72. MD Complaint: fever, other (Body aches) Onset/Timin -: days(s) Severity scale (0 -10): 3 Quality: aching Consistency: constant Improves With: nothing Worsens With: nothing Context: other (Covid positive) Associated Symptoms: fever, myalgias, headache, cough. denies: chills, diaphoresis, rhinorrhea, nasal congestion, sore throat, shortness of breath, abdominal pain, nausea, vomiting, diarrhea - Related Data Home Medications Medication Instructions Recorded Confirmed Last Taken Albuterol INH(or & Nicu Only) 2 puff INHALATION PRN PRN 05/15/19 12/28/20 06/28/20 08:00 Lisinopril 40 mg PO DAILY 05/15/19 12/28/20 06/29/20 08:00 Atorvastatin [Lipitor] 40 mg PO QHS 05/16/19 12/28/2021 21:00 Chlorthalidone [Thalitone] 25 mg PO QDAY 05/16/19 12/28/20 06/29/20 08:00 Eliquis 5 mg PO Q12HR 03/20/20 12/28/20 06/26/20 08:00 Previous Rx's Medication Instructions Recorded Last Taken Type ALBUTEROL NEB's [Proventil 0.083% 2.5 mg IH PRN PRN #30 nebu 08/17/18 01/16/20 08:00 Rx NEBS] Metoprolol Xl [Metoprolol 50 mg PO QDAY #30 tablet 08/17/18 06/30/20 06:00 Rx SUCCINATE ER TAB] NIFEdipine XL [Procardia Xl] 90 mg PO QDAY #30 tablet 08/17/18 06/30/20 06:00 Rx Oxycodone HCl/Acetaminophen 1 each PO Q6HR PRN #40 tablet 06/03/19 06/29/20 21:00 Rx [Percocet 10/325 mg] Prednisone [predniSONE 5 mg (6-Day 5 mg PO .TAPER #1 tab.ds.pk 01/02/21 Unknown Rx Pack, 21 Tabs)] Allergies Allergy/AdvReac Type Severity Reaction Status Date / Time ibuprofen [From Motrin] Allergy Severe Rash Verified 06/30/20 12:43 iodine Allergy Severe Rash Verified 06/30/20 08:41 latex Allergy Rash Verified 06/30/20 12:43 ED Review of Systems ROS: Stated complaint: COVID+ SYMPTOMS WORSEN Other details as noted in HPI Comment: All other systems reviewed and negative ED Past Medical Hx - Past Medical History Previous Medical History?: Yes Hx Hypertension: Yes (2004) Hx Heart Attack/AMI: No Hx Congestive Heart Failure: No Hx Diabetes: No Hx Deep Vein Thrombosis: (unknown) Hx Liver Disease: No Hx Renal Disease: No Hx Sickle Cell Disease: No Hx Arthritis: Yes Hx Headaches / Migraines: Yes (MIGRAINES - NOT RECENT) Hx Seizures: No Hx Kidney Stones: Yes Hx Asthma: Yes (INHALER PRN) Hx Tuberculosis: No Hx HIV: No Additional medical history: Degenerative Joint Disease - Surgical History Past Surgical History?: Yes Hx Pacemaker: No Hx Internal Defibrillator: No Hx Appendectomy: Yes Additional Surgical History: tonsilectomy, tubiligation, colon cancer, rotator cuff on right, - Social History Smoking Status: Never Smoker - Medications Home Medications: Home Medications Medication Instructions Recorded Confirmed Last Taken Type ALBUTEROL NEB's [Proventil 0.083% 2.5 mg IH PRN PRN #30 nebu 08/17/18 12/28/20 01/16/20 08:00 Rx NEBS] Metoprolol Xl [Metoprolol 50 mg PO QDAY #30 tablet 08/17/18 12/28/20 06/30/20 06:00 Rx SUCCINATE ER TAB] NIFEdipine XL [Procardia Xl] 90 mg PO QDAY #30 tablet 08/17/18 12/28/20 06/30/20 06:00 Rx Albuterol INH(or & Nicu Only) 2 puff INHALATION PRN PRN 05/15/19 12/28/20 06/28/20 08:00 History Lisinopril 40 mg PO DAILY 05/15/19 12/28/20 06/29/20 08:00 History Atorvastatin [Lipitor] 40 mg PO QHS 05/16/19 12/28/20 06/29/20 21:00 History Chlorthalidone [Thalitone] 25 mg PO QDAY 05/16/19 12/28/20 06/29/20 08:00 History Oxycodone HCl/Acetaminophen 1 each PO Q6HR PRN #40 tablet 06/03/19 01/02/21 06/29/20 21:00 Rx [Percocet 10/325 mg] Eliquis 5 mg PO Q12HR 03/20/20 12/28/20 06/26/20 08:00 History Prednisone [predniSONE 5 mg (6-Day 5 mg PO .TAPER #1 tab.ds.pk 01/02/21 Unknown Rx Pack, 21 Tabs)] ED Physical Exam - General Limitations: No Limitations General appearance: alert, in no apparent distress - Head Head exam: Present: atraumatic, normocephalic - Eye Eye exam: Present: normal appearance - ENT ENT exam: Present: normal orophraynx, mucous membranes moist, TM's normal bilaterally, normal external ear exam - Neck Neck exam: Present: normal inspection - Respiratory Respiratory exam: Present: normal lung sounds bilaterally. Absent: respiratory distress, chest wall tenderness, accessory muscle use - Cardiovascular Cardiovascular Exam: Present: regular rate, normal rhythm. Absent: systolic murmur, diastolic murmur, rubs, gallop - GI/Abdominal GI/Abdominal exam: Present: soft, normal bowel sounds - Extremities Exam Extremities exam: Present: normal inspection. Absent: full ROM, pedal edema - Back Exam Back exam: Present: normal inspection - Neurological Exam Neurological exam: Present: alert, oriented X3 - Psychiatric Psychiatric exam: Present: normal affect, normal mood - Skin Skin exam: Present: warm, dry, intact, normal color. Absent: rash ED Course Vital Signs 01/02/21 01/02/21 01/02/21 12:34 12:40 12:46 Temperature 100.2 F H 100.4 F H Pulse Rate 73 97 H Respiratory 16 14 Rate Blood Pressure 114/75 127/62 [Left] O2 Sat by Pulse 95 99 Oximetry ED Medical Decision Making - Medical Decision Making 65-year-old -[place] female presents to the emergency room complaining of headache left ear pain. Patient states she tested positive for Covid on Monday. She seen her primary care provider and he is placed on Zithromax Mucinex and Flonase. Patient currently takes Percocet for chronic pain. She is currently on Eliquis. She denies any chest pain no shortness of breath. She is currently on 4 blood pressure medications with a stable blood pressure of 127/62. Patient has a fever of 100.4. Her oxygenation is 99% on room air with a heart rate of 72. Patient will be given acetaminophen 1 g p.o. Patient be discharged home on a prednisone pack. Patient has stable vital signs blood pressure stable at 127/63 heart rate 72 oxygenation is 99% on room air. Patient is to continue with current medications that were prescribed by her primary care provider. Critical care attestation.: If time is entered above; I have spent that time in minutes in the direct care of this critically ill patient, excluding procedure time. ED Disposition Clinical Impression: COVID-19 Disposition: HOME / SELF CARE / HOMELESS Is pt being admited?: No Does the pt Need Aspirin: No Condition: Stable Instructions: COVID-19 Frequently Asked Questions, COVID-19: How to Protect Yourself and Others - CDC, Prevent the Spread of COVID-19 if You Are Sick - [facility] Additional Instructions: Your symptoms appear most consistent with a nonspecific viral syndrome. However, given this current pandemic, COVID-19 is in the differential of possibilities. I do recommend repeat outpatient Covid 19 testing in 7 days. In the meantime, isolate/quarantine yourself and stay away from anyone who is elderly, immunocompromised or chronically ill. You can use Tylenol every 4-8 hours, using the dosing on the back of the bottle, as needed for any fever or body aches. Return to the emergency department with any worsening of your symptoms, development of chest pain or shortness of breath, or with any acute distress. Continue with your medication such your primary care provider has placed for you. Prescriptions: Prednisone [predniSONE 5 mg (6-Day Pack, 21 Tabs)] 5 mg PO .TAPER #1 tab.ds.pk Referrals: Your, primary care provider [Other] - 3-5 Days Time of Disposition: 12:58
== END 2021-01-02 13:18 | disposition home or self-care (01) ==
LOC: ED 11:20
DX: U07.1 COVID-19 (principal); I10 Essential (primary) hypertension; Z88.8 Allergy status to other drugs, medicaments and biological substances; Z91.041 Radiographic dye allergy status; Z91.040 Latex allergy status
CPT/HCPCS: 99282

== ENCOUNTER 2021-07-21 08:43 | Day surgery (SDC) | payer MEDICARE ==
[~2021-07-21 08:43] MED LIST changes: -BUPIVACAINE/PF (0.5%) 5 MG/1 ML 30 ML VIAL INFILTRATI ONE; -MORPHINE 10 MG/1 ML INJ IM ONE; -SODIUM CHLORIDE 0.9% 100 ML IVPB IV ONE; +SODIUM CHLORIDE 0.9% 1000 ML 1,000 ML IV SCH; -SODIUM CHLORIDE 0.9% 50 ML VIAL INFILTRATI ONE; -SODIUM CHLORIDE 0.9% IRRIG SOLN 2000 ML IR ONE; -TRANEXAMIC ACID 1,000 MG/10 ML IV ONE; -ceFAZolin/Water 2 GM/20 ML 2 GM/20 ML SYRINGE IV NR
--- NOTE | 2021-07-21 09:11 | Anesthesia Consultation ---
Anesthesia Consult and Med Hx Date of service: 07/21/21 - Airway Anesthetic Teeth Evaluation: Good ROM Head & Neck: Adequate Mental/Hyoid Distance: Adequate Mallampati Class: Class II Intubation Access Assessment: Probably Good - Pulmonary Exam CTA: Yes - Cardiac Exam Cardiac Exam: RRR - Pre-Operative Health Status ASA Pre-Surgery Classification: ASA3 Proposed Anesthetic Plan: MAC - Pulmonary Hx Smoking: No Hx Asthma: Yes (INHALER PRN - last used early June 2021) Hx Respiratory Symptoms: No COPD: No (Dx LARY) Hx Pneumonia: No Hx Sleep Apnea: Yes (DX SLEEP APNEA WITH CPAP USE) - Cardiovascular System Hx Hypertension: Yes (2004) Hx Coronary Artery Disease: No Hx Heart Attack/AMI: No Hx Percutaneous Transluminal Coronary Angioplasty (PTCA): No Hx Cardia Arrhythmia: Yes (a-fib on eliquis - last taken 07/19/21) Hx Pacemaker: No Hx Internal Defibrillator: No Hx Valvular Heart Disease: Yes (MVR , HX "3 LEAKING VALVES" cardiology clearance reviewed) Hx Heart Murmur: No - Central Nervous System Hx Neuromuscular Disorder: No Hx Seizures: No CVA: Yes (2017 , NO DEFICITS) Hx Back Pain: Yes Hx Psychiatric Problems: No - Gastrointestinal Hx Gastroesophageal Reflux Disease: No - Endocrine Hx Renal Disease: No Hx End Stage Renal Disease: No Hx Liver Disease: No Hx Insulin Dependent Diabetes: No Hx Non-Insulin Dependent Diabetes: No Hx Thyroid Disease: No - Hematic Hx Anemia: Yes Hx Sickle Cell Disease: No - Other Systems Hx Alcohol Use: No Hx Substance Use: No Hx Cancer: Yes Hx Obesity: Yes (BMI 52) - Additional Comments Anesthesia Medical History Comments: No hx of anesthetic complications. Cardiology clearance on chart.
--- NOTE | 2021-07-21 09:12 | Anesthesia Day of Surgery ---
Anesthesia Day of Surgery - Day of Surgery Patient Examined: Yes Patient H&P Reviewed: Yes Patient is NPO: Yes Cardiac Clearance: Yes (on chart)
[2021-07-21] MEDS ORDERED: propofoL 200 MG/20 ML VIAL IV ONE ×2 (09:47→10:03)
--- NOTE | 2021-07-21 10:13 | Operative Report ---
Operative Report Operative Report: DOS: 07/21/2021 SURGEON: Sloan Mcgraw MD COLONOSCOPY WITH SNARE POLYPECTOMY REPORT PREOPERATIVE AND POSTOPERATIVE DIAGNOSIS: Personal history of colon cancer DESCRIPTION OF PROCEDURE: The colonoscope was passed to the ileocolonic anastomosis in the ascending colon as identified by the ileal tissue. Scope was carefully withdrawn. Retroflexion was performed in the rectum. At the end of procedure, the scope was cleaned using normal technique. Vital signs monitored continuously throughout. SEDATION: Provided by Anesthesiology Services. Quality of the prep was good COMPLICATIONS: None. ESTIMATED BLOOD LOSS: Minimal FINDINGS: * Ileocolonic anastomosis approximately the ascending colon. * Normal terminal ileum * 4 mm sessile polyp in the sigmoid colon removed by cold snare polypectomy * Remainder of exam unremarkable RECOMMENDATIONS: Repeat colonoscopy 5 years
[2021-07-21 14:01] VITALS: BP 97/46
== END 2021-07-21 08:44 | disposition home or self-care (01) ==
LOC: GIO 08:43
PROVIDERS: ATTEND Student in an Organized Health Care Education/Training Program
DX: Z12.11 Encounter for screening for malignant neoplasm of colon (principal); K63.5 Polyp of colon; K63.89 Other specified diseases of intestine; K64.8 Other hemorrhoids; E78.5 Hyperlipidemia, unspecified; I10 Essential (primary) hypertension; J45.909 Unspecified asthma, uncomplicated; I48.91 Unspecified atrial fibrillation; G43.909 Migraine, unspecified, not intractable, without status migrainosus; G47.30 Sleep apnea, unspecified; E66.9 Obesity, unspecified; M19.90 Unspecified osteoarthritis, unspecified site; F32.9 Major depressive disorder, single episode, unspecified; F41.9 Anxiety disorder, unspecified; Z85.89 Personal history of malignant neoplasm of other organs and systems; Z86.010 Personal history of colon polyps; Z91.040 Latex allergy status; Z91.041 Radiographic dye allergy status; Z88.8 Allergy status to other drugs, medicaments and biological substances; Z79.899 Other long term (current) drug therapy; Z85.038 Personal history of other malignant neoplasm of large intestine; Z86.718 Personal history of other venous thrombosis and embolism; Z90.49 Acquired absence of other specified parts of digestive tract; Z98.51 Tubal ligation status; Z87.440 Personal history of urinary (tract) infections; Z96.642 Presence of left artificial hip joint; Z96.651 Presence of right artificial knee joint; Z98.890 Other specified postprocedural states; Z82.61 Family history of arthritis; Z82.5 Family history of asthma and other chronic lower respiratory diseases; Z68.43 Body mass index [BMI] 50.0-59.9, adult; Z86.73 Personal history of transient ischemic attack (TIA), and cerebral infarction without residual deficits
CPT/HCPCS: 45385; 88305; J2704; J7030; J7120; Q0162

== ENCOUNTER 2021-11-19 12:31 | Outpatient (CLI) | payer MEDICARE ==
--- NOTE | 2021-11-19 13:20 | Vascular Lab Report ---
DUPLEX DOPPLER LOWER EXTREMITY VEINS, LEFT INDICATION / CLINICAL INFORMATION: PAIN LT.KNEE. TECHNIQUE: Duplex doppler imaging was performed through the veins of the left lower extremity using venous compr ession and other maneuvers. COMPARISON: None available. FINDINGS: LEFT COMMON FEMORAL VEIN: Negative. LEFT FEMORAL VEIN: Negative. LEFT POPLITEAL VEIN: Negative. LEFT CALF VEINS: Negative. ADDITIONAL FINDINGS: None. IMPRESSION: 1. No sonographic evidence for DVT in the left lower extremity. Signer Name: Adalberto Clemente MD Signed: 11/19/2021 1:16 PM Workstation Name: [email or web address]
== END 2021-11-19 12:32 | disposition home or self-care (01) ==
LOC: VAS 12:31
PROVIDERS: ATTEND Orthopaedic Surgery
DX: M17.12 Unilateral primary osteoarthritis, left knee (principal); Z86.711 Personal history of pulmonary embolism

== ENCOUNTER 2021-11-22 08:17 | Outpatient (CLI) | payer MEDICARE ==
--- NOTE | 2021-11-22 09:21 | XRay Report ---
Left knee 2 views INDICATION: Knee pain FINDINGS: Left knee arthroplasty is satisfactory in position and alignment. No acute fracture. No lar ge effusion. Signer Name: Td Pope MD Signed: 11/22/2021 9:17 AM Workstation Name: [id number]
== END 2021-11-22 08:18 | disposition home or self-care (01) ==
LOC: XRAY 08:17
PROVIDERS: ATTEND Orthopaedic Surgery
DX: M17.12 Unilateral primary osteoarthritis, left knee (principal); Z96.652 Presence of left artificial knee joint

== ENCOUNTER 2022-01-04 08:23 | Outpatient (CLI) | payer MEDICARE ==
--- NOTE | 2022-01-04 12:07 | Vascular Lab Report ---
DUPLEX DOPPLER LOWER EXTREMITY VEINS, LEFT INDICATION / CLINICAL INFORMATION: M25.572 PAIN IN LEFT ANKLE AND JOINTS OF LEFT FOOT. TECHNIQUE: Duplex doppler imaging was performed through the veins of the left lower extremity using v enous compression and other maneuvers. COMPARISON: Left lower extremity venous Doppler 11/19/2021. FINDINGS: LEFT COMMON FEMORAL VEIN: Negative. LEFT FEMORAL VEIN: Negative. LEFT POPLITEAL VEIN: Negative. LEFT CALF VEINS: Negative. ADDITIONAL FINDINGS: Small left knee effusion noted. IMPRESSION: 1. No sonographic evidence for DVT in the left lower extremity. Scribed by: Khushbu Mathew RDMS, LUIS, RAY Scribed: 01/04/2022 10:31 AM I have reviewed the images, agree with this report, and edited this report as needed. Signer Name: Adalberto Clemente MD Signed: 01/04/2022 12:03 PM Workstation Name: [email or web address]
== END 2022-01-04 08:24 | disposition home or self-care (01) ==
LOC: VAS 08:23
PROVIDERS: ATTEND Orthopaedic Surgery
DX: R22.42 Localized swelling, mass and lump, left lower limb (principal); Z96.652 Presence of left artificial knee joint; Z86.718 Personal history of other venous thrombosis and embolism